=== PATIENT | male | born 1955 | race Caucasian/White ===

== ENCOUNTER 2019-06-29 17:48 | Inpatient (IN) | payer BC ==
[2019-06-29] MEDS ORDERED: ASPIRIN 81 MG PO STA (18:25)
[2019-06-29] MEDS ORDERED: SODIUM CHLORIDE 0.9% 500 ML 500 ML IV STA (18:25)
[2019-06-29 18:37] LABS: Basophils % (A) 0 %; Eosinophils # (A) 0.1 k/uL (0-0.7); Eosinophils % (A) 1 %; HGB 14.2 gm/dL (13.0-17.5); Lymphocytes # (A) 1.4 k/uL (1.0-4.8); Lymphocytes % (A) 22 %; MCH 30.6 pg (25.0-35.0); MCHC 33.8 g/dL (31.0-37.0); MCV 90.6 fL (80.0-100.0); Mean Platelet Volume 8.8; Monocytes # (A) 0.3 k/uL (0-1.0); Monocytes % (A) 5 %; Neutrophils # (A) 4.6 k/uL (1.3-7.7); Neutrophils % (A) 70 %; Platelet Count 234 k/uL (150-450); RBC 4.64 m/uL (4.30-5.90); RDW 14.7 % (11.5-15.5); WBC 6.6 k/uL (3.8-10.6)
[2019-06-29 18:44] LABS: ALT 27 U/L (21-72); AST 15 U/L (17-59); African American GFR (CKD) >90 (>60 ml/min/1.73 sqM); Albumin 4.8 g/dL (3.5-5.0); Alkaline Phosphatase 44 U/L (38-126); Anion Gap 11 mmol/L; Blood Urea Nitrogen 17 mg/dL (9-20); Calcium 9.7 mg/dL (8.4-10.2); Carbon Dioxide 29 mmol/L (22-30); Chloride 99 mmol/L (98-107); Glucose 113 mg/dL (74-99); Potassium 3.8 mmol/L (3.5-5.1); Sodium 139 mmol/L (137-145); Total Bilirubin 0.4 mg/dL (0.2-1.3); Total Protein 7.5 g/dL (6.3-8.2)
--- NOTE | 2019-06-29 18:45 | ED ---
General Adult HPI <Elier Portillo - Last Filed: 06/29/19 19:48> - General Source: patient Mode of arrival: ambulatory Limitations: no limitations <Sasha Kim - Last Filed: 06/29/19 19:56> - General Chief complaint: Chest Pain Stated complaint: CHEST PAIN Time Seen by Provider: 06/29/19 18:01 - History of Present Illness Initial comments: 64-year-old male patient presents to the emergency department today for evaluation of chest pain. Patient states that he isn't having intermittent chest pain since Saturday. States he was seen, evaluated, and admitted at [facility] and was discharged Saturday morning. Patient states he filled a prescription of Nitro yesterday. States that he has taken a nitro tablet since filling the prescription. Patient states that the nitro does seem to resolve the chest pain. Patient states the pain is located on the left side of his chest radiating through to his back beneath his left shoulder blade. Patient states he does become short of breath when the pain comes on. Denies sweats, nausea, vomiting, or dizziness. Denies leg pain or swelling. Patient states that his blood pressure has been quite elevated with these episodes as well. states his blood pressure was 204/[address] Patient denies ever having a cardiac catheterization. He states that his father age 68 from cardiac complications and his brother has a 5 cardiac stents. Patient denies any recent rash, fever, chills, cough, abdominal pain, diarrhea, constipation, back pain, numbness, tingling, dizziness, weakness, hematuria, dysuria, urinary urgency, urinary frequency, headache, visual changes, or any other complaints. (Sasha Kim) - Related Data Home Medications Medication Instructions Recorded Confirmed Aspirin EC [Ecotrin Low Dose] 81 mg PO DAILY 06/29/19 06/29/19 Atorvastatin Calcium [Lipitor] 20 mg PO HS 06/29/19 06/29/19 Cyclobenzaprine [Flexeril] 10 mg PO DAILY PRN 06/29/19 06/29/19 Fenofibrate 160 mg PO HS 06/29/19 06/29/19 Losartan Potassium [Cozaar] 100 mg PO DAILY 06/29/19 06/29/19 Ranitidine HCl [Zantac] 150 mg PO BID PRN 06/29/19 06/29/19 traMADol HCL [Ultram] 50 mg PO Q6HR PRN 06/29/19 06/29/19 Allergies Allergy/AdvReac Type Severity Reaction Status Date / Time No Known Allergies Allergy Verified 06/29/19 17:55 Review of Systems ROS Other: All systems not noted in ROS Statement are negative. <Elier Portillo - Last Filed: 06/29/19 19:48> ROS Other: All systems not noted in ROS Statement are negative. <Sasha Kim - Last Filed: 06/29/19 19:56> ROS Statement: Those systems with pertinent positive or pertinent negative responses have been documented in the HPI. Past Medical History Past Medical History: Chest Pain / Angina, Hypertension Additional Past Medical History / Comment(s): eczema History of Any Multi-Drug Resistant Organisms: None Reported Past Surgical History: Orthopedic Surgery Additional Past Surgical History / Comment(s): E femur, jaw Past Psychological History: No Psychological Hx Reported Smoking Status: Former smoker Past Alcohol Use History: Occasional Past Drug Use History: None Reported <Sasha Kim - Last Filed: 06/29/19 19:56> General Exam Limitations: no limitations General appearance: alert, in no apparent distress, other (This is a well- developed, well-nourished adult male patient in no acute distress. Vital signs upon presentation are temperature 98.3F, pulse 79, respirations 18, blood pre ssure 151/89, pulse ox 99% on room air.) Eye exam: Present: normal appearance, PERRL, EOMI. Absent: scleral icterus, conjunctival injection, periorbital swelling ENT exam: Present: normal exam, normal oropharynx, mucous membranes moist Respiratory exam: Present: normal lung sounds bilaterally. Absent: respiratory distress, wheezes, rales, rhonchi, stridor Cardiovascular Exam: Present: regular rate, normal rhythm, normal heart sounds. Absent: systolic murmur, diastolic murmur, rubs, gallop, clicks Neurological exam: Present: alert, oriented X3, CN II-XII intact Psychiatric exam: Present: normal affect, normal mood Skin exam: Present: warm, dry, intact, normal color. 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 uQevedo. Patient be admitted for cardiology evaluation the presentation is consistent with unstable angina. (Elier Portillo) EKG Findings - EKG Comments: EKG Findings:: EKG obtained at 1803 shows a sinus rhythm with a ventricular rate of 76, VT interval 134, QRS duration 88, QT 378, QTC 425 area no evidence of ST elevation or depression. <Sasha Kim - Last Filed: 06/29/19 19:56> Medical Decision Making - Lab Data Result diagrams: 06/29/19 18:14 06/29/19 18:14 <Elier Portillo - Last Filed: 06/29/19 19:48> - Lab Data Result diagrams: 06/29/19 18:14 06/29/19 18:14 - Radiology Data Radiology results: report reviewed, image reviewed <Sasha Kim - Last Filed: 06/29/19 19:56> - Medical Decision Making 64-year-old male patient presented to the emergency department today for evaluation of intermittent chest pain starting on Saturday. Patient has taken 8 nitro tablets since yesterday afternoon. Patient states the pain does resolve when he takes a nitro. Physical examination is unremarkable. Initial labs are obtained, troponin 0.02. Chest x-ray is unremarkable. Given patient's symptoms, history, and family history of admit to the hospital for serial tropon ins. We will start heparin. Cardiology has been consulted. (Sasha Kim) - Lab Data Lab Results 06/29/19 06/29/19 06/29/19 Range/Units 18:14 18:14 18:14 WBC 6.6 (3.8-10.6) k/uL RBC 4.64 (4.30-5.90) m/uL Hgb 14.2 (13.0-17.5) gm/dL Hct 42.0 (39.0-53.0) % MCV 90.6 (80.0-100.0) fL MCH 30.6 (25.0-35.0) pg MCHC 33.8 (31.0-37.0) g/dL RDW 14.7 (11.5-15.5) % Plt Count 234 (150-450) k/uL Neutrophils % 70 % Lymphocytes % 22 % Monocytes % 5 % Eosinophils % 1 % Basophils % 0 % Neutrophils # 4.6 (1.3-7.7) k/uL Lymphocytes # 1.4 (1.0-4.8) k/uL Monocytes # 0.3 (0-1.0) k/uL Eosinophils # 0.1 (0-0.7) k/uL Basophils # 0.0 (0-0.2) k/uL PT 10.0 (9.0-12.0) sec INR 0.9 (<1.2) APTT 21.8 L (22.0-30.0) sec D-Dimer 0.42 (<0.60) mg/L FEU Sodium 139 (137-145) mmol/L Potassium 3.8 (3.5-5.1) mmol/L Chloride 99 (98-107) mmol/L Carbon Dioxide 29 (22-30) mmol/L Anion Gap 11 mmol/L BUN 17 (9-20) mg/dL Creatinine 0.75 (0.66-1.25) mg/dL Est GFR (CKD-EPI)AfAm >90 (>60 ml/min/1.73 sqM) Est GFR (CKD-EPI)NonAf >90 (>60 ml/min/1.73 sqM) Glucose 113 H (74-99) mg/dL Calcium 9.7 (8.4-10.2) mg/dL Magnesium 2.0 (1.6-2.3) mg/dL Total Bilirubin 0.4 (0.2-1.3) mg/dL AST 15 L (17-59) U/L ALT 27 (21-72) U/L Alkaline Phosphatase 44 (38-126) U/L Troponin I (0.000-0.034) ng/mL Total Protein 7.5 (6.3-8.2) g/dL Albumin 4.8 (3.5-5.0) g/dL 06/29/19 Range/Units 18:14 WBC (3.8-10.6) k/uL RBC (4.30-5.90) m/uL Hgb (13.0-17.5) gm/dL Hct (39.0-53.0) % MCV (80.0-100.0) fL MCH (25.0-35.0) pg MCHC (31.0-37.0) g/dL RDW (11.5-15.5) % Plt Count (150-450) k/uL Neutrophils % % Lymphocytes % % Monocytes % % Eosinophils % % Basophils % % Neutrophils # (1.3-7.7) k/uL Lymphocytes # (1.0-4.8) k/uL Monocytes # (0-1.0) k/uL Eosinophils # (0-0.7) k/uL Basophils # (0-0.2) k/uL PT (9.0-12.0) sec INR (<1.2) APTT (22.0-30.0) sec D-Dimer (<0.60) mg/L FEU Sodium (137-145) mmol/L Potassium (3.5-5.1) mmol/L Chloride (98-107) mmol/L Carbon Dioxide (22-30) mmol/L Anion Gap mmol/L BUN (9-20) mg/dL Creatinine (0.66-1.25) mg/dL Est GFR (CKD-EPI)AfAm (>60 ml/min/1.73 sqM) Est GFR (CKD-EPI)NonAf (>60 ml/min/1.73 sqM) Glucose (74-99) mg/dL Calcium (8.4-10.2) mg/dL Magnesium (1.6-2.3) mg/dL Total Bilirubin (0.2-1.3) mg/dL AST (17-59) U/L ALT (21-72) U/L Alkaline Phosphatase (38-126) U/L Troponin I 0.023 (0.000-0.034) ng/mL Total Protein (6.3-8.2) g/dL Albumin (3.5-5.0) g/dL - Radiology Data Two-view x-ray of the chest is obtained. Report is reviewed in its entirety. Impression by Dr. Ostermann shows normal chest. (Sasha Kim) Disposition <Elier Portillo - Last Filed: 06/29/19 19:48> Decision to Admit Reason: Admit from EC Decision Date: 06/29/19 Decision Time: 19:55 <Sasha Kim - Last Filed: 06/29/19 19:56> Clinical Impression: Chest pain, Unstable angina pectoris Disposition: ADMITTED IP TO THIS [facility] Condition: Serious Referrals: Tamara Ryder MD [Primary Care Provider] - 1-2 days
[2019-06-29 19:00] LABS: D-Dimer 0.42 mg/L FEU (<0.60); INR 0.9 (<1.2)
[2019-06-29 19:01] LABS: Partial Thromboplastin Time 21.8 sec (22.0-30.0)
--- NOTE | 2019-06-29 19:16 | XR ---
EXAMINATION TYPE: XR chest 2V DATE OF EXAM: 06/29/2019 COMPARISON: NONE HISTORY: Pain TECHNIQUE: Frontal and lateral views of the chest are obtained. FINDINGS: Heart and mediastinum are normal. Lungs are clear. Diaphragm is normal. Bony thorax is int act. IMPRESSION: Normal chest
[2019-06-29] MEDS ORDERED: NITROGLYCERIN SL TABS 0.4 MG TAB SUBLINGUAL PRN (19:40)
[2019-06-29] MEDS ORDERED: HEPARIN SODIUM,PORCINE 5,000 UNIT/ML 1 ML VIAL IV ONE (19:40)
[2019-06-29] MEDS ORDERED: HEPARIN SOD,PORK IN 0.45% NACL 25,000 UNIT in 0.45% NACL 1 250ML.BAG IV SCH (19:45)
[2019-06-29] MEDS ORDERED: NITROGLYCERIN OINT 1 INCH/GM PACKET TOPICAL STA (20:19)
[2019-06-29] MEDS ORDERED: NITROGLYCERIN-D5W PMX 50 MG in DEXTROSE/WATER 1 250ML.BAG IV SCH (23:45)
[2019-06-29] MEDS ORDERED: MORPHINE SULFATE 4 MG/ML SYRINGE IVP PRN (23:54)
[2019-06-29] MEDS ORDERED: FAMOTIDINE 20 MG TAB PO PRN (23:56)
[2019-06-30] MEDS ORDERED: NITROGLYCERIN OINT 1 INCH/GM PACKET TOPICAL SCH
[2019-06-30] MEDS ORDERED: MELATONIN 5 MG TABLET PO ONE (02:11)
[2019-06-30 02:41] LABS: Glucose,Whole Blood 95 mg/dL (75-99)
[2019-06-30] MEDS ORDERED: HEPARIN SODIUM,PORCINE 5,000 UNIT/ML 1 ML VIAL IV STA (05:37)
[2019-06-30 06:12] LABS: HGB 12.7 gm/dL (13.0-17.5); MCHC 34.2 g/dL (31.0-37.0); MCV 90.7 fL (80.0-100.0); Mean Platelet Volume 8.5; Platelet Count 184 k/uL (150-450); RBC 4.08 m/uL (4.30-5.90); WBC 5.5 k/uL (3.8-10.6)
[2019-06-30 06:26] LABS: African American GFR (CKD) >90 (>60 ml/min/1.73 sqM); Anion Gap 8 mmol/L; Blood Urea Nitrogen 16 mg/dL (9-20); Carbon Dioxide 28 mmol/L (22-30); Chloride 104 mmol/L (98-107); Cholesterol 156 mg/dL (<200); Glucose 94 mg/dL (74-99); HDL Cholesterol 46 mg/dL (40-60); LDL Cholesterol,Calculated 92 mg/dL (0-99); Potassium 3.7 mmol/L (3.5-5.1); Sodium 140 mmol/L (137-145); Triglycerides 89 mg/dL (<150)
[2019-06-30] MEDS ORDERED: POTASSIUM BICARBONATE/CIT AC 20 MEQ TABLET.EFF NG-TUBE ONE (07:00)
[2019-06-30] MEDS ORDERED: ASPIRIN 325 MG TAB PO STA (07:54)
[2019-06-30] MEDS ORDERED: SODIUM CHLORIDE 0.9% 1,000 ML in EMPTY BAG 1 BAG IV ONE (07:54)
[2019-06-30] MEDS ORDERED: ALPRAZolam 0.25 MG TAB PO PRN (07:54)
[2019-06-30] MEDS ORDERED: NITROGLYCERIN SL TABS 0.4 MG TAB SUBLINGUAL PRN ×2 (07:54→15:04)
[2019-06-30] MEDS ORDERED: ALPRAZolam 0.5 MG TAB PO PRN (07:54)
[2019-06-30] MEDS ORDERED: ATORVASTATIN 80 MG TAB PO STA (07:54)
--- NOTE | 2019-06-30 08:30 | CONS ---
CONSULTATION Mr. Parker is 64-year-old male known history of hypertension, hyperlipidemia, who was admitted to the emergency room with symptoms of chest discomfort. His symptoms started in May on and off. He was admitted to [facility] beginning of May, underwent full cardiac workup including a stress test according to him that was reported to be normal. His discomfort at that time is exertional in pattern. He continued to have recurrent episode of chest discomfort and was seen in the emergency room in [place] on Saturday with chest pain, was given nitroglycerin and during Saturday had multiple episodes of chest pain requiring nitroglycerin. MMODL / IJN: [id number] /
[2019-06-30] MEDS: SODIUM CHLORIDE 0.9% 1,000 ML IV SCH ×2 (08:59→20:46)
[2019-06-30] MEDS ORDERED: ASPIRIN 325 MG TAB PO SCH (09:00)
--- NOTE | 2019-06-30 09:57 | CONS ---
CONSULTATION PULMONARY/CRITICAL CARE CONSULTATION: DATE OF CONSULTATION: 06/30/2017 This is a patient who presented to the emergency room on June 29. He apparently complained of a chest pain. The patient apparently had been having chest pain for a period of a number of days, lasting for about 3 or 4 days or so since the prior Saturday. He was apparently seen and evaluated, admitted at [facility] and was discharged on Saturday morning. He apparently got a prescription for nitroglycerin, which he filled. Since that time, he has taken nitroglycerin tablets on and off. The pain seemed to resolve with nitroglycerin sublingual. The pain is left- sided and radiates to the back beneath the left shoulder blade. He also complains of being short of breath. He denies any nausea, vomiting or dizziness. Denies any leg pain or swelling. Denies any GI issues. No genitourinary issues. Apparently, the patient's blood pressure has been out of control. The patient has never had a cardiac catheterization. Apparently, he may be going for catheterization today. Currently, he is resting comfortably. No chest pain. He is not receiving any supplemental oxygen. His IVs are heparin via weight-based protocol and nitroglycerin at 2.5 mcg/minute. HOME MEDICATIONS: Include aspirin, Lipitor, cyclobenzaprine which is Flexeril, fenofibrate, losartan, ranitidine, and tramadol. MEDICAL HISTORY: Includes hyperlipidemia, hypertension, angina, eczema, and chronic pain. SURGICAL HISTORY: Includes orthopedic procedures including femur procedure and some jaw surgery. SOCIAL HISTORY: Positive for previous tobacco use. Does not smoke currently. Alcohol is apparently used occasionally. No illicit drug use. FAMILY HISTORY: Noncontributory. Apparently his parents were relatively healthy, although he apparently has a brother that has had multiple cardiac procedures and cardiac stents and then subsequent to that, he remembers that apparently his father at age 68 from some sort of cardiac history. REVIEW OF SYSTEMS: CONSTITUTIONAL: Negative. NEUROLOGIC: Negative. HEENT: Negative. CARDIOVASCULAR: Chest pain. PULMONARY: Shortness of breath with the chest pain. GI: Negative. : Negative. RHEUMATOLOGIC: Negative. IMMUNOLOGIC: Negative. ENDOCRINOLOGIC: Negative. DERMATOLOGIC: Negative. PHYSICAL EXAMINATION: Current vital signs are reviewed. Temperature is 98.7, heart rate 58, respiratory rate 12, blood pressure 119/78 mean 91, room air saturation 96%. Appears in no acute distress. HEENT: Examination is grossly unremarkable. No supplemental oxygen noted. Mucous membranes are moist. NECK: Supple. Full range of motion. No adenopathy or thyromegaly. Neck veins are flat. CARDIOVASCULAR: Examination reveals regular rhythm and rate. S1, S2 normal. Heart rate in the mid 50s. No heart murmur. LUNGS: Reveal clear breath sounds equal. No wheezes, rhonchi, or crackles. ABDOMEN: Soft. Bowel sounds are heard. No masses or tenderness. EXTREMITIES: Intact. No cyanosis, clubbing, or edema. SKIN: Without rash. NEUROLOGIC: Examination is brief but nonfocal. LABS: Reviewed. White count 5.5, hemoglobin 12.7, hematocrit 37, platelet count 184,000. Sodium 140, potassium 3.7, chloride 104, CO2 is 28, anion gap is 8. BUN and creatinine were 16 and 0.67. Troponin was 0.023 and then 0.119. His cholesterol was 156. Chest x-ray was normal. EKG showed some nonspecific ST-T wave changes but nothing acute. ASSESSMENT: 1. Chest pain, rule out non ST-segment elevation myocardial infarction. 2. Family history of cardiac disease including a brother with multiple stent placements. 3. History of hypertension. 4. History of hyperlipidemia. 5. Chronic pain syndrome. 6. Previous history of tobacco use. PLAN: The patient may go for cardiac catheterization today. Currently in the ICU he is very stable. No additional recommendations are made. Pending the cath result, he can move out of the ICU later today. Additional recommendations and suggestions are forthcoming. Prognosis is guarded. MMODL / IJN: [id number] /
--- NOTE | 2019-06-30 10:11 | CONS ---
CONSULTATION Mr. Parker is a 64-year-old male followed by Dr. Ryder who started to complain of chest discomfort early in May. He was admitted to [facility] and according to him underwent a full workup including a stress test that showed no evidence of inducible ischemia, but had recurrent chest discomfort on and off. At times, exertional in pattern and was seen in the emergency room in [place] on Saturday for similar symptoms. Was given nitroglycerin sublingually, had to use a lot of them on Saturday and came back to the emergency room yesterday in [place] and admitted. Some of the discomfort is exertional in pattern. He has some dyspnea with it and occasional dizziness. No palpitation or syncope. He has no PND, orthopnea, or peripheral edema. He has no prior documented history of cardiac disease. His coronary risk factors are remarkable for history of hypertension, hyperlipidemia. MEDICATIONS: His medications include Lipitor 20 mg daily, fenofibrate 160 mg daily, losartan 100 mg daily, ranitidine, cyclobenzaprine, tramadol, and aspirin once a day. REVIEW OF SYSTEMS: RESPIRATORY SYSTEM: He has no recent wheezing, cough. No history of documented obstructive lung disease. GI SYSTEM: No recent GI bleeding. No peptic ulcer disease. SYSTEM: No dysuria or hematuria. NERVOUS SYSTEM: No stroke or seizure. PHYSICAL EXAMINATION: This is a 64-year-old male, alert, oriented, in no apparent distress. Blood pressure 119/70 with the heart rate in the 60s. HEAD: Normocephalic. EYES: Sclerae anicteric. NECK: Good carotid upstroke. No bruit. No jugular venous distention. LUNGS: Clear to auscultation. HEART: Regular rate and rhythm S1, S2. No S3. No S4. No rub. ABDOMEN: Soft, nontender. Positive bowel sounds. No organomegaly. EXTREMITIES: No edema. Intact distal pulses. LAB DATA: Lab data revealed troponin 0.023 and 0.119, BUN and creatinine 16 and 0.67, potassium 3.7, hemoglobin of 12.7. EKG: Initial EKG reveals sinus mechanism, normal axis and intervals. Normal echocardiogram. Second EKG showed ST-segment depression in the lateral precordial leads as well as Lead I and aVL. IMPRESSION: 1. Non ST-segment elevation myocardial infarction probably in the left circumflex territory. 2. Hypertension. 3. Hyperlipidemia. RECOMMENDATION: I will try to obtain the results of his echocardiogram that was done in [place], but I would recommend to proceed with coronary angiography to assess his status and guide his treatment. The rationale behind the procedure as well as the risks and complication were discussed with the patient who is in full understanding and agreement. CHERELLE / MIKEL: [id number] / MTDD
[2019-06-30] MEDS: ACETAMINOPHEN TAB 325 MG TAB PO PRN ×2 (11:53→21:48)
[2019-06-30 12:13] LABS: Glucose,Whole Blood 95 mg/dL (75-99)
[2019-06-30] MEDS ORDERED: fentaNYL (PF) 50 MCG/ML 2 ML AMP IV ONE (13:35)
[2019-06-30] MEDS ORDERED: MIDAZOLAM (PF) 2 MG/2 ML VIAL IV ONE (13:35)
[2019-06-30] MEDS ORDERED: NITROGLYCERIN SL TABS 0.4 MG TAB SUBLINGUAL ONE (13:36)
[2019-06-30] MEDS ORDERED: LIDOCAINE 1% INJ 10MG/ML (20 ML MDV) SQ ONE (13:37)
[2019-06-30] MEDS ORDERED: VERAPAMIL SYRINGE (5 MG/10 ML) INTRAARTER ONE (13:38)
[2019-06-30] MEDS ORDERED: IV FLUID CONTINUATION 600 ML IV ONE (13:41)
[2019-06-30] MEDS ORDERED: BIVALIRUDIN BOLUS 250 MG/50 ML IV ONE (13:52)
[2019-06-30] MEDS ORDERED: TICAGRELOR 90 MG TAB PO ONE (13:52)
[2019-06-30] MEDS ORDERED: BIVALIRUDIN 250 MG in SODIUM CHLORIDE 0.9% 36.5 ML IV ONE (13:53)
[2019-06-30] MEDS: NITROGLYCERIN 1000MCG/10ML SYRINGE INTRACORON ONE ×2 (13:55→14:15)
[2019-06-30] MEDS ORDERED: IOPAMIDOL-370 100ML BTL INJ ONE ×3 (13:56→14:39)
[2019-06-30] MEDS ORDERED: RX INFO: IV CONTRAST WAS GIVEN 1 EACH MISC MISCELLANE PRN (15:04)
[2019-06-30] MEDS ORDERED: ATROPINE SULFATE 0.1 MG/ML 10ML SYRINGE IV PRN (15:04)
[2019-06-30] MEDS ORDERED: ZOLPIDEM 5 MG TAB PO PRN (15:04)
[2019-06-30] MEDS ORDERED: MAG HYDROX/AL HYDROX/SIMETH 30 ML CUP PO PRN (15:04)
[2019-06-30] MEDS ORDERED: SODIUM CHLORIDE 0.9% 1,000 ML IV SCH (15:15)
[2019-06-30] MEDS: LOSARTAN 50 MG TAB PO SCH (15:27)
--- NOTE | 2019-06-30 18:42 | CC ---
CARDIAC CATHETERIZATION REPORT Mr. Parker is a 64-year-old male with a history of hyperlipidemia, hypertension, who has been complaining of episode of chest discomfort. He was evaluated in [facility] and has underwent a myocardial perfusion imaging that was reported showing no evidence of inducible ischemia, but he had persistent symptoms and was seen again in the emergency room, but because of the persistent symptoms, Dr. Ryder sent him to [facility]. On presentation, he had mild ST-segment depression and minimal troponin elevation. In view of that, recommendation made regarding cardiac catheterization. The procedures, risks and complications were discussed with the patient who is in full understanding and agreement. DESCRIPTION OF PROCEDURE: Patient was brought to laboratory specialist in a fasting state after receiving fentanyl and Benadryl and achieving moderate conscious sedated state. Using Xylocaine anesthesia and Seldinger technique, a 6-Nauruan sheath was introduced in the right radial artery. Selective right and left coronary angiography was performed using 5-Nauruan 3 and half bend right and left Jade catheter. Multiple views of the coronary arteries including hemiaxial views were obtained. Following that, angioplasty and stenting was performed. Following that, left ventricular end-diastolic pressure was calculated using a 5-Nauruan tight pigtail catheter. Following that, catheter and sheath were removed. Hemostasis was obtained with deployment of a TR band. There was no immediate complications. Patient was returned to his room in stable condition. Of note, the patient received intraarterial verapamil. FINDINGS: FLUOROSCOPY: There was calcification involving the left main, LAD and left circumflex, proximal as well as the mid and right coronary artery. SELECTIVE CORONARY ANGIOGRAPHY: Left main: This is a large-sized vessel, bifurcating into the left circumflex, left anterior descending artery, left main coronary artery has no evidence of high-grade stenosis. Left anterior descending artery: This is a calcified vessel, large in caliber, reaching toward the apex with a wraparound apex segment giving rise to a large diagonal branch. Left anterior descending artery has diffuse intimal disease throughout its course of 20% to 30%, had no focal plaque. Left circumflex: This is a nondominant vessel, large in caliber giving rise to a large obtuse marginal branch. The proximal segment of the obtuse marginal branch has a 99% stenosis. Distal to that, there is another plaque of 30% to 40% The rest of the vessel has no high-grade stenosis. Right coronary artery: This is a dominant vessel, large in caliber, bifurcating distally into PDA and posterolateral segment and branches. The right coronary artery has diffuse disease throughout its course from the proximal segment to prior to the bifurcation with area of stenosis of 99% stenosis in the mid and distal. The PLV and PDA have no evidence of high-grade stenosis. LEFT VENTRICULOGRAM: The left ventriculogram was not performed. HEMODYNAMICS: There was no gradient across the aortic valve. The left ventricular end-diastolic pressure was 8 mmHg. CONCLUSION: 1. Critical stenosis involving the first obtuse marginal branch. 2. Critical stenosis and diffuse pattern throughout the course of the RCA until the bifurcation. 3. Mild to moderate disease in the LAD. RECOMMENDATION: In view of finding anatomy, I recommend proceeding with angioplasty and stenting of the left circumflex and the right coronary artery. The procedure as well as risks and complications were discussed with the patient who is in full understanding and agreement. MMODL / IJN: [id number] /
--- NOTE | 2019-06-30 18:45 | PTCA ---
PERCUTANEOUSTRANS CORORONARY ANGIOGRAPHY Mr. Parker is a 64-year-old male who presented with a non ST-segment elevation myocardial infarction, underwent cardiac catheterization, was found to have critical stenosis involving the second obtuse marginal branch and the right coronary artery. In view of that, recommendation made regarding angioplasty and stenting. The procedure as well as risks and complications were discussed with the patient who is in full understanding and agreement. DESCRIPTION OF PROCEDURE: A 6-Welsh FL 3.5 guiding catheter was introduced into the system. After cannulating the left main, a 0.014 balanced medium weight J-wire was advanced and positioned distal obtuse marginal branch. Following that, a 2.5 x 12 mm Trek balloon was advanced and one inflation at 10 atmospheres was done. Following that, the balloon was removed and a 2.75 x 15 mm Xience Deisy stent was deployed and was dilated at 16 atmospheres. After the last inflation, after appropriate wait, the balloon and the guidewire were withdrawn back in the guiding catheter. Images were obtained repeated. Those images reveal stable successful stenting. At that point, the guiding catheter, the balloon and the guidewire were removed and a 6-Welsh FR4 guiding catheter in the system. After cannulating the right coronary ostium, a 0.014 balanced medium weight J-wire was advanced and positioned distal right coronary artery. Subsequently a 2.25 x 12 mm Trek balloon was advanced and multiple inflations throughout the course of the vessel were done at a maximum of 10 atmospheres. Following that, the balloon was removed and a 2.5 x 38 mm Xience Deisy stent was deployed distally. It was dilated at 16 atmospheres. After removing the balloon, another 2.5 x 38 mm Xience Deisy stent was deployed proximal to the first one and it was dilated at 16 atmospheres. Following that, a 2.75 x 12 mm Xience Deisy stent was deployed proximally and was dilated at for 16 atmospheres. Following that, a 2.75 x 15 mm NC Trek balloon was advanced and multiple inflations throughout the course of the vessel were performed. Following that catheter was removed. Left ventricular end-diastolic pressure was calculated. Following that catheter and sheaths were removed. The patient was returned to his room in stable condition. There was no immediate complication. Of note, the patient received Angiomax per protocol as well as oral loading dose of Brilinta. He had chest discomfort and mild EKG changes with the inflation that resolved at the end of the procedure. RESULTS: 1. Successful stenting of the second obtuse marginal branch with reduction of stenosis from 99% to 0%. 2. Successful stenting of a long segment of the right coronary artery with reduction of stenosis from 95% to 0%. RECOMMENDATIONS: Patient will be continued on aspirin, Brilinta, beta blockers and statin. The importance of dual antiplatelet treatment were discussed with the patient and his family and are in full understanding and agreement. Duration of procedure is 69 minutes. MMODL / IJN: [id number] /
[2019-06-30] MEDS: TICAGRELOR 90 MG TAB PO SCH (20:45)
[2019-06-30] MEDS ORDERED: FENOFIBRATE 160 MG TAB PO SCH (21:00)
[2019-06-30] MEDS ORDERED: ATORVASTATIN 80 MG TAB PO SCH (21:00)
[2019-06-30] MEDS ORDERED: ATORVASTATIN 20 MG TAB PO SCH (21:00)
--- NOTE | 2019-06-30 23:07 | P.HPIM ---
History of Present Illness H&P Date: 06/30/19 Chief Complaint: Chest pain Patient is a 64-year-old male with a known history of hypertension, hyperlipidemia and history of chest pains, previous history of smoking came to ER with complaints of chest pain. Patient says that he has been having chest pain since Saturday and was admitted to [facility] and were discharged Saturday morning. Patient was still having chest pain mainly left retrosternal and radiating to the left shoulder and to the left jaw and to the back. Chest pain is associated shortness of breath. Patient started after he picked up to tomatos from the garden and was walking. Patient says that he has been having chest pains the past 1 year and exertional shortness of breath as well. Patient had stress test done in May 2019 which was negative. Patient's states that his blood pressure went up to 20 02/02 54 mm hg on the patient to hospital. No prior history of headache catheterization. Denied any complaints of cough or sputum production. No fever no chills. No nausea vomiting or abdominal pain. No dizziness or lightheadedness. No other pain no PND. EKG showed unusual year and ectopic atrial rhythm. Chest x-ray showed no acute cardio for process Troponin 0.0-3, 0.119, 0.089 Patient was seen by cardiology and was taken to cardiac catheterization. Review of Systems Constitutional: Patient denies any fever or chills . No generalized weakness or weight loss. Abdomen: Patient denied nausea vomiting and diarrhea and abdominal pain. Cardiovascular: Chest pain radiating to the shoulder and short of breath no palpitations. Respiratory: patient denied any cough is from production. No shortness of breath Neurologic: Patient denied any numbness or tingling headache. Musculoskeletal: Patient denies any complaints of joint swelling or deformity. Skin: Negative Psychiatric: Negative Endocrine: No heat or cold intolerance. No recent weight gain. Genitourinary: No dysuria or hematuria. All other 14 point ROS negative except the above Past Medical History Past Medical History: Chest Pain / Angina, Hypertension Additional Past Medical History / Comment(s): Eczema History of Any Multi-Drug Resistant Organisms: None Reported Past Surgical History: Orthopedic Surgery Additional Past Surgical History / Comment(s): Right femur fx, jaw fx Past Psychological History: No Psychological Hx Reported Smoking Status: Former smoker Past Alcohol Use History: Occasional Past Drug Use History: None Reported - Past Family History Father Additional Family Medical History / Comment(s): Father at 68 of myocardial infarction. Brother(s) Additional Family Medical History / Comment(s): Brother has 5 cardiac stents. Medications and Allergies Home Medications Medication Instructions Recorded Confirmed Type Aspirin EC [Ecotrin Low Dose] 81 mg PO DAILY 06/29/19 06/29/19 History Atorvastatin Calcium [Lipitor] 20 mg PO HS 06/29/19 06/29/19 History Cyclobenzaprine [Flexeril] 10 mg PO DAILY PRN 06/29/19 06/29/19 History Fenofibrate 160 mg PO HS 06/29/19 06/29/19 History Losartan Potassium [Cozaar] 100 mg PO DAILY 06/29/19 06/29/19 History Ranitidine HCl [Zantac] 150 mg PO BID PRN 06/29/19 06/29/19 History traMADol HCL [Ultram] 50 mg PO Q6HR PRN 06/29/19 06/29/19 History Allergies Allergy/AdvReac Type Severity Reaction Status Date / Time No Known Allergies Allergy Verified 06/29/19 17:55 Physical Exam Vitals: Vital Signs Temp Pulse Pulse Resp BP Pulse Ox 06/30/19 13:00 58 L 11 L 128/76 94 L 06/30/19 12:30 57 L 13 126/81 96 06/30/19 12:00 98 F 56 L 14 128/92 96 06/30/19 11:30 63 18 126/88 96 06/30/19 11:00 60 11 L 122/76 96 06/30/19 10:30 61 16 121/69 97 06/30/19 10:00 62 16 133/84 95 06/30/19 09:30 55 L 14 130/97 94 L 06/30/19 09:00 66 17 150/92 95 06/30/19 08:30 69 15 164/96 06/30/19 08:00 98 F 71 15 115/76 96 06/30/19 07:30 56 L 14 124/78 94 L 06/30/19 07:00 58 L 12 119/78 96 06/30/19 06:30 57 L 14 126/80 96 06/30/19 06:00 60 16 109/69 96 06/30/19 05:30 56 L 14 121/70 95 08/27/19 05:00 55 L 14 129/75 95 06/30/19 04:30 55 L 14 128/84 96 06/30/19 04:00 60 12 110/70 96 06/30/19 03:35 98.7 F 55 L 14 06/30/19 03:30 53 L 12 121/76 96 06/30/19 03:00 98.7 F 55 L 12 119/99 96 06/30/19 01:55 64 14 105/69 96 06/30/19 01:50 56 L 14 113/71 97 06/30/19 01:45 55 L 15 111/77 96 06/30/19 01:40 57 L 15 103/81 97 06/30/19 01:35 57 L 14 105/69 96 06/30/19 01:30 62 14 105/71 95 06/30/19 01:25 59 L 15 108/72 96 06/30/19 01:20 55 L 12 103/69 96 06/30/19 01:15 55 L 13 102/73 96 06/30/19 01:10 54 L 14 105/77 96 06/30/19 01:05 60 16 100/74 96 06/30/19 00:55 56 L 98/68 98 06/30/19 00:52 56 L 107/70 06/30/19 00:49 57 L 101/69 06/30/19 00:46 57 L 106/64 06/30/19 00:43 60 106/64 06/30/19 00:40 57 L 106/71 06/29/19 23:56 63 16 117/92 97 06/29/19 23:41 63 16 204/114 98 06/29/19 22:24 60 15 06/29/19 22:19 97.6 F 60 14 115/76 98 06/29/19 21:30 61 14 112/69 98 06/29/19 21:00 57 L 15 127/79 96 06/29/19 20:30 61 15 123/80 97 06/29/19 20:24 61 14 123/80 98 06/29/19 20:00 60 16 156/96 97 06/29/19 18:30 71 16 139/98 97 06/29/19 18:06 75 15 06/29/19 18:05 75 06/29/19 17:55 98.3 F 79 18 151/89 99 Intake and Output 06/29/19 06/30/19 06/30/19 22:59 06:59 14:59 Intake Total 95.031 548.134 Output Total 45 825 Balance 50.031 -276.866 Intake: IV 510 Sodium Chloride 0.9% 1, 510 000 ml @ 100 mls/hr IV . Q10H TUTU Rx#:[id number] Intake, IV Titration 95.031 38.134 Amount Heparin Sod,Pork in 0.45% 94.881 32.059 NaCl 25,000 unit In 0.45 % NaCl 1 250ml.bag @ 11. 14 UNITS/KG/HR 10.005 mls /hr IV .Q24H TUTU Rx#: [id number] Nitroglycerin-D5w Pmx 50 0.15 6.075 mg In Dextrose/Water 1 250ml.bag @ 5 MCG/MIN 1.5 mls/hr IV .Q24H TUTU Rx#: [id number] Output: Urine 45 825 Other: Voiding Method Urinal # Voids 0 1 Weight 89.811 kg PHYSICAL EXAMINATION: Patient is lying in the bed comfortably, no acute distress, awake alert and oriented.. HEENT: Normocephalic. Neck is supple. Pupils reactive. Nostrils clear. Oral cavity is moist. Ears reveal no drainage. Neck reveals no JVD, carotid bruits, or thyromegaly. CHEST EXAMINATION: Trachea is central. Symmetrical expansion. Lung zapata clear to auscultation and percussion. CARDIAC: Normal S1, S2 with no gallops. No murmurs ABDOMEN: Soft. Bowel sounds normal. No organomegaly. No abdominal bruits. Extremities: reveal no edema. No clubbing or cyanosis Neurologically awake, alert, oriented x3 with well-coordinated movements. No focal deficits noted Skin: No rash or skin lesions. Psychiatric: Coperative. Nonsuicidal Musculoskeletal: No joint swelling or deformity. Normal range of motion. Results CBC & Chem 7: 06/30/19 05:53 06/30/19 05:53 Labs: Abnormal Lab Results - Last 24 Hours (Table) 06/29/19 06/29/19 06/30/19 Range/Units 18:14 18:14 03:43 RBC (4.30-5.90) m/uL Hgb (13.0-17.5) gm/dL Hct (39.0-53.0) % APTT 21.8 L 41.6 H (22.0-30.0) sec Glucose 113 H (74-99) mg/dL AST 15 L (17-59) U/L Troponin I (0.000-0.034) ng/mL 06/30/19 06/30/19 06/30/19 Range/Units 05:53 05:53 12:13 RBC 4.08 L (4.30-5.90) m/uL Hgb 12.7 L (13.0-17.5) gm/dL Hct 37.0 L (39.0-53.0) % APTT (22.0-30.0) sec Glucose (74-99) mg/dL AST (17-59) U/L Troponin I 0.119 H* 0.089 H* (0.000-0.034) ng/mL Thrombosis Risk Factor Assmnt - DVT/VTE Prophylaxis DVT/VTE Prophylaxis: Pharmacologic Prophylaxis ordered - Choose All That Apply Any of the Below Risk Factors Present?: Yes Each Factor Represents 1 point: Medical pt on bed rest, Minor surgery planned Other Risk Factors: Yes Each Risk Factor Represents 2 Points: Age 61-74 years, Patient confined to bed Thrombosis Risk Factor Assessment Total Risk Factor Score: 6 Thrombosis Risk Factor Assessment Level: High Risk Assessment and Plan Assessment: Acute non-ST elevated [place] is post cardiac catheterization and stent placement 4 Hypertension Chest pain or exertional dyspnea Recent negative stress test as per patient Previous history of smoking DVT prophylaxis Plan: Patient be continued on telemetry monitoring. Continue with aspirin, prasugrel, lisinopril and statins. Currently beta attila was not started due to bradycardia. Cardiology is on board. Continue to follow closely and further recommendations based on the clinical course. Discussed with the patient and family at bedside. Time with Patient: Greater than 30
[2019-07-01 05:56] LABS: African American GFR (CKD) >90 (>60 ml/min/1.73 sqM); Anion Gap 7 mmol/L; Blood Urea Nitrogen 13 mg/dL (9-20); Calcium 9.2 mg/dL (8.4-10.2); Carbon Dioxide 25 mmol/L (22-30); Chloride 108 mmol/L (98-107); Glucose 95 mg/dL (74-99); Sodium 140 mmol/L (137-145)
[2019-07-01 06:14] LABS: HCT 38.9 % (39.0-53.0); HGB 13.3 gm/dL (13.0-17.5); MCH 31.7 pg (25.0-35.0); MCHC 34.3 g/dL (31.0-37.0); MCV 92.6 fL (80.0-100.0); Mean Platelet Volume 8.3; Platelet Count 195 k/uL (150-450); RDW 13.3 % (11.5-15.5); WBC 5.8 k/uL (3.8-10.6)
--- NOTE | 2019-07-01 08:25 | PN ---
PROGRESS NOTE Mr. Parker is a 64-year-old male who presented with symptoms of chest discomfort and evidence of non ST-segment elevation myocardial infarction, underwent cardiac catheterization yesterday was found to have critical stenosis involving the second obtuse marginal branch as well as a long segment of the right coronary artery, underwent stenting of both vessels. He is doing well this morning. His breathing is stable. He is denying any chest pain. No dizziness. No palpitation. He denies any nausea. He continued to be on aspirin once a day, Brilinta 90 mg twice a day, Lipitor 80 mg daily, fenofibrate 160 mg daily, and losartan 100 mg daily. PHYSICAL EXAMINATION: Blood pressure 114/90 with the heart rate in the 60s. LUNGS: Clear. HEART: Regular rate and rhythm. S1, S2. No S3. No rub. ABDOMEN: Soft, nontender. EXTREMITIES: No edema. Right radial pulse intact. LAB DATA: Lab data revealed BUN and creatinine 13 and 0.62. Hemoglobin 13.3. His peak troponin is 0.152. EKG shows no acute changes this morning. IMPRESSION: 1. Status post non ST-segment elevation myocardial infarction with stenting of the second obtuse marginal branch and the right coronary artery. 2. Hyperlipidemia. 3. Hypertension. RECOMMENDATION: From the cardiac standpoint, we will increase his activity. If he remains stable, I would expect he should be able to be discharged home today and followed as an outpatient. CHERELLE / MIKEL: [id number] /
[2019-07-01] MEDS ORDERED: ASPIRIN 81 MG PO SCH ×2 (09:00)
[2019-07-01] MEDS: LOSARTAN 50 MG TAB PO SCH (09:26)
[2019-07-01] MEDS: TICAGRELOR 90 MG TAB PO SCH (09:28)
--- NOTE | 2019-07-01 09:44 | P.PN ---
Subjective Progress Note Date: 07/01/19 Principal diagnosis: Non-ST segment elevated myocardial infarction, with stenting of the second obtuse marginal branch and the right coronary artery On only patient seen in follow-up in the intensive care unit, yesterday patient underwent heart catheterization and there were 3 stents placed to the right coronary artery, and 1 stent to the up to use marginal branch of the circumflex coronary artery. Patient is doing well, today she is awake and alert, he is on room air, no running IVs, he is an overflow for selective care. No complaints of chest pain, his breathing is stable, no dizziness, no palpitations, no nausea, she is on a combination of aspirin in [place] twice daily, Lipitor, fenofibrate, and losartan. Vital signs are stable, lung sounds are clear, sinus rhythm on the monitor. No specific complaints overnight Objective - Vital Signs Vital signs: Vital Signs Temp 97.9 F 07/01/19 04:00 Pulse 65 07/01/19 07:00 Resp 15 07/01/19 07:00 BP 114/94 07/01/19 07:00 Pulse Ox 97 07/01/19 07:00 Intake & Output 06/30/19 07/01/19 07/01/19 18:59 06:59 18:59 Intake Total 1498.134 600 Output Total 1525 250 150 Balance -26.866 350 -150 Weight 92.2 kg Intake: IV 1210 600 Sodium Chloride 0.9% 1, 960 600 000 ml @ 100 mls/hr IV . Q10H TUTU Rx#:[id number] Intake, IV Titration 38.134 Amount Heparin Sod,Pork in 0.45% 32.059 NaCl 25,000 unit In 0.45 % NaCl 1 250ml.bag @ 11. 14 UNITS/KG/HR 10.005 mls /hr IV .Q24H [facility]U Rx#: [id number] Nitroglycerin-D5w Pmx 50 6.075 mg In Dextrose/Water 1 250ml.bag @ 5 MCG/MIN 1.5 mls/hr IV .Q24H [facility]U Rx#: [id number] Oral 250 Output: Urine 1525 250 150 Other: Voiding Method Urinal Urinal # Voids 1 0 1 - Exam GENERAL EXAM: Alert, pleasant, 64-year-old tall white male room air pulse ox is 97%, comfortable in no apparent distress. HEAD: Normocephalic/atraumatic. EYES: Normal reaction of pupils, equal size. Conjunctiva pink, sclera white. NOSE: Clear with pink turbinates. THROAT: No erythema or exudates. NECK: No masses, no JVD, no thyroid enlargement, no adenopathy. CHEST: No chest wall deformity. Symmetrical expansion. LUNGS: Equal air entry with no crackles, wheeze, rhonchi or dullness. CVS: Regular rate and rhythm, normal S1 and S2, no gallops, no murmurs, no rubs ABDOMEN: Soft, nontender. No hepatosplenomegaly, normal bowel sounds, no guarding or rigidity. EXTREMITIES: No clubbing, no edema, no cyanosis, 2+ pulses and upper and lower extremities. MUSCULOSKELETAL: Muscle strength and tone normal. SPINE: No scoliosis or deformity SKIN: No rashes CENTRAL NERVOUS SYSTEM: Alert and oriented -3. No focal deficits, tone is normal in all 4 extremities. PSYCHIATRIC: Alert and oriented -3. Appropriate affect. Intact judgment and insight. - Labs CBC & Chem 7: 07/01/19 05:11 07/01/19 05:11 Labs: Abnormal Lab Results - Last 24 Hours (Table) 06/30/19 06/30/19 07/01/19 Range/Units 12:13 17:10 05:11 RBC (4.30-5.90) m/uL Hct (39.0-53.0) % Chloride 108 H (98-107) mmol/L Creatinine 0.62 L (0.66-1.25) mg/dL Troponin I 0.089 H* 0.152 H* (0.000-0.034) ng/mL 07/01/19 Range/Units 05:11 RBC 4.20 L (4.30-5.90) m/uL Hct 38.9 L (39.0-53.0) % Chloride (98-107) mmol/L Creatinine (0.66-1.25) mg/dL Troponin I (0.000-0.034) ng/mL Assessment and Plan Plan: Assessment: #1. Chest pain, non-ST segment elevated myocardial infarction #2. Coronary artery disease, status post stenting of the right coronary artery, and up to his marginal branch of the circumflex artery, patient received 3 stents to the RCA one stent to the OM, this is postop day 1 #3. History of hypertension #4. History of hyperlipidemia, #5. Chronic pain syndrome #6. Previous history of tobacco use Plan: Patient is doing well, breathing is stable, no complaints of chest pain, no acute events overnight, he is awaiting a bed on selective care. Cardio ALLERGIES following, and maximizing medical treatment I performed a history & physical examination of the patient and discussed their management with my nurse practitioner, Brittany Byrnes. I reviewed the nurse practitioner's note and agree with the documented findings and plan of care. Lung sounds are positive for clear breath sounds. The findings and the impression was discussed with the patient. I attest to the documentation by the nurse practitioner. Time with Patient: Less than 30
[2019-07-01 09:55] VITALS: BMI 28.3
[2019-07-01 10:52] VITALS: BP 107/93; PULSE 70; RESP 13; TEMP 98
== END 2019-07-01 13:44 | disposition home or self-care (01) | DRG 246 ==
LOC: EC 17:48 → SUPCPDRO 17:48 → 1SOBS 19:41 → OBSVTOIN 23:57 → 2SICU 06-30 00:21
PROVIDERS: ADMIT Hospitalist; ATTEND Hospitalist
PROC: 027137Z Dilation of Coronary Artery, Two Arteries with Four or More Drug-eluting Intraluminal Devices, Percutaneous Approach (ICD-10-PCS; principal; 2019-06-30 13:10)
PROC: B2161ZZ Fluoroscopy of Right and Left Heart using Low Osmolar Contrast (ICD-10-PCS; principal; 2019-06-30 13:10)
DX: I21.4 Non-ST elevation (NSTEMI) myocardial infarction (principal); E78.5 Hyperlipidemia, unspecified; I10 Essential (primary) hypertension; L30.9 Dermatitis, unspecified; I25.10 Atherosclerotic heart disease of native coronary artery without angina pectoris; G89.4 Chronic pain syndrome; Z87.891 Personal history of nicotine dependence; I25.110 Atherosclerotic heart disease of native coronary artery with unstable angina pectoris; Z82.49 Family history of ischemic heart disease and other diseases of the circulatory system; Z95.5 Presence of coronary angioplasty implant and graft; Z79.02 Long term (current) use of antithrombotics/antiplatelets; Z79.82 Long term (current) use of aspirin; Z79.899 Other long term (current) drug therapy
CPT/HCPCS: 36415; 71046; 80048; 80053; 80061; 83735; 84484; 85025; 85027; 85347; 85379; 85610; 85730; 93005; 93458; 96361; 96365; 96366; 96368; 96376; 99285; C1874

== ENCOUNTER 2021-02-27 08:31 | Day surgery (SDC) | payer BC, MEDICARE ==
[2021-02-13 14:43] VITALS: BMI 28.5
--- NOTE | 2021-02-19 12:13 | HP ---
HISTORY AND PHYSICAL REASON FOR ADMISSION: Surgery scheduled for 02/20/2021. Keegan Parker is a 65-year-old gentleman seen with symptomatic right knee osteoarthritis. We discussed options for treatment. He elected to proceed with right total knee arthroplasty. Consent was obtained. Medical clearance was provided by Dr. Ryder. Cardiac clearance was provided by Dr. Sharp. PAST MEDICAL HISTORY: Hypertension, hyperlipidemia, cardiovascular disease. PAST SURGICAL HISTORY: Cardiac catheterization with stent insertion. DAILY MEDICATIONS: Aspirin, atorvastatin, losartan, multivitamins, Zetia. ALLERGIES: NONE. SOCIAL HISTORY: Denies current tobacco use. PHYSICAL EVALUATION OF THE RIGHT KNEE: Range of motion is -2/3-120. There is a mild effusion. Tenderness along the medial joint line. Crepitus along the medial patellofemoral compartments with range of motion. Pain with patellofemoral compression. Ligaments are stable. Hip rotation is without pain. His distal neurovascular exam is intact. RADIOGRAPHS: Right knee radiographs reveal severe osteoarthritic changes. IMPRESSION: 1. Right knee osteoarthritis. 2. Hypertension. 3. Hyperlipidemia. 4. Cardiovascular disease. PLAN: Right total knee arthroplasty. Surgery 02/20/2021. MMODL / IJN: [id number] /
--- NOTE | 2021-02-26 11:57 | HP ---
HISTORY AND PHYSICAL REASON FOR ADMISSION: Surgery scheduled for 02/27/2021. Keegan Parker is a 65-year-old gentleman seen with progressive right knee pain. We discussed options for treatment. He elected to proceed with total knee arthroplasty. Consent regarding procedure was obtained. Preoperative clearance was brought by Dr. Sharp and Dr. Ryder. PAST MEDICAL HISTORY: Hypertension, hyperlipidemia, [id number] diabetes. PAST SURGICAL HISTORY: Cardiac catheterization with stent placement. DAILY MEDICATIONS: Aspirin, atorvastatin, fenofibrate, losartan, Zetia, tramadol, vitamins. ALLERGIES: None. SOCIAL HISTORY: Denies current tobacco use. PHYSICAL EVALUATION OF THE RIGHT KNEE: Range of motion is -2/3-120. He has mild effusion. Tenderness along the medial joint line. There is crepitus along the medial patellofemoral compartments with range of motion. Pain with patellofemoral compression. Ligaments are stable. Hip rotation is without pain. His distal neurovascular exam is intact. RADIOGRAPHS: Radiographs of the right knee revealed severe medial compartment osteoarthritis, moderate patellofemoral compartment osteoarthritis. IMPRESSION: 1. Right knee osteoarthritis. 2. Hypertension. 3. Hyperlipidemia. 4. [id number]-[id number] diabetes. 5. Cardiovascular disease. PLAN: Right total knee arthroplasty. Surgery 02/27/2021. MMODL / IJN: [id number] /
[~2021-02-27 08:31] MED LIST: ACETAMINOPHEN TAB 500 MG TAB PO PRN; HYDROmorphone 0.5 MG/0.5 ML SYRINGE IVP PRN; LACTATED RINGERS 1,000 ML IV SCH; LIDOCAINE 1% (10MG/ML) FOR IV START INTRADERMA PRN; MELOXICAM 7.5 MG TAB PO PRN; ROPIVACAINE/EPI/CLONIDINE/KET 50 ML SYRINGE MISCELLANE PRN; TRANEXAMIC ACID 1,000 MG in SODIUM CHLORIDE 0.9% 100 ML IVPB PRN
[2021-02-27] MEDS ORDERED: ONDANSETRON 4 MG/2 ML VIAL IVP ONE (08:51)
[2021-02-27] MEDS ORDERED: LACTATED RINGERS 1,000 ML IV SCH (08:51)
[2021-02-27] MEDS ORDERED: DEXAMETHASONE SOD PHOSPHATE 4 MG/ML 1 ML VIAL IVP ONE (09:29)
[2021-02-27] MEDS ORDERED: MIDAZOLAM 2 MG/2 ML VIAL IVP ONE (09:46)
[2021-02-27] MEDS: fentaNYL (PF) 50 MCG/ML 2 ML AMP IVP ONE ×3 (09:46→12:59)
[2021-02-27 10:13] VITALS: RESP 16
[2021-02-27] MEDS ORDERED: ROPIVACAINE 5 MG/ML 30 ML VIAL ONE (10:29)
[2021-02-27] MEDS ORDERED: PROPOFOL 10 MG/ML 20 ML VIAL IV ONE (10:29)
[2021-02-27] MEDS ORDERED: SODIUM CHLORIDE 0.9% (PF) 10 ML VIAL ONE (10:29)
[2021-02-27] MEDS ORDERED: TRANEXAMIC ACID 1,000 MG/10 ML VIAL ONE (10:29)
[2021-02-27] MEDS ORDERED: SODIUM CHLORIDE 0.9% 100 ML BAG ONE (10:29)
[2021-02-27] MEDS ORDERED: NEOSTIGMINE 1 MG/ML 10 ML VIAL ONE (10:29)
[2021-02-27] MEDS ORDERED: HYDROmorphone (PF) 1 MG/ML ONE (10:29)
[2021-02-27] MEDS ORDERED: ROCURONIUM 10 MG/ML (5 ML VIAL) IV ONE (10:29)
[2021-02-27] MEDS ORDERED: LIDOCAINE 1% INJ 10MG/ML (20 ML MDV) ONE (10:29)
[2021-02-27] MEDS ORDERED: GLYCOPYRROLATE 0.2 MG/ML 2 ML VIAL ONE (10:29)
[2021-02-27] MEDS ORDERED: MIDAZOLAM 2 MG/2 ML VIAL ONE (10:29)
[2021-02-27] MEDS ORDERED: SUCCINYLCHOLINE CHLORIDE 100 MG/5 ML SYR IV ONE (10:29)
[2021-02-27] MEDS ORDERED: fentaNYL (PF) 50 MCG/ML 2 ML AMP ONE (10:29)
[2021-02-27] MEDS ORDERED: ceFAZolin 1,000 MG in SODIUM CHLORIDE 0.9% 1,000 ML IRRIGATION ONE (10:56)
[2021-02-27] MEDS ORDERED: LACTATED RINGERS 1,000 ML IV ONE ×2 (10:58→12:30)
--- NOTE | 2021-02-27 11:31 | P.ANPRN ---
Procedure Note - Anesthesia - Nerve Block Performed Right Adductor Canal Infusion Time Out Performed: Yes (945) Date of Procedure: 02/27/21 Procedure Start Time: 09:46 Procedure Stop Time: 09:51 Location of Patient: PreOp Indication: Acute Post-Operative Pain, Requested by Surgeon Specifically requested for management of pain by DrJonas: Jesse Cortes Sedation Type: Sedate with meaningful contact maintained Preparation: Sterile Prep Position: Supine Catheter Depth at Skin (cm): 10 Catheter: Indwelling Needle Types: Pajunk Needle Gauge: 21 Ultrasound used to visualize needle placement: Yes Ultrasound used to observe medication spread: Yes Injectate: 0.5% Ropivacaine (see comment for volume) (20cc) Blood Aspirated: No Pain Paresthesia on Injection Noted: No Resistance on Injection: Normal Image Stored and Saved: Yes Events: Uneventful and Well Tolerated Right iPack Single Time Out Performed: Yes (945) Date of Procedure: 02/27/21 Procedure Start Time: 09:52 Procedure Stop Time: 09:56 Indication: Acute Post-Operative Pain, Requested by Surgeon Specifically requested for management of pain by DrJonas: Jesse Cortes Sedation Type: Sedate with meaningful contact maintained Preparation: Sterile Prep Position: Supine Catheter: None Needle Types: Pajunk Needle Gauge: 21 Ultrasound used to visualize needle placement: Yes Ultrasound used to observe medication spread: Yes Injectate: 0.5% Ropivacaine (see comment for volume) (10cc + 10cc NaCl) Blood Aspirated: No Pain Paresthesia on Injection Noted: No Resistance on Injection: Normal Image Stored and Saved: Yes Events: Uneventful and Well Tolerated
[2021-02-27] MEDS ORDERED: HYDROcodone/APAP 7.5-325MG 1 EACH TAB PO PRN (12:30)
[2021-02-27] MEDS ORDERED: NALOXONE 0.4 MG/ML 1 ML VIAL IV PRN (12:30)
[2021-02-27] MEDS ORDERED: HYDROmorphone 0.2 MG/1 ML SYRINGE IVP PRN (12:30)
[2021-02-27] MEDS ORDERED: HYDROmorphone 0.5 MG/0.5 ML SYRINGE IVP PRN (12:30)
[2021-02-27] MEDS ORDERED: HYDROcodone/APAP 5-325MG 1 EACH TAB PO PRN (12:30)
[2021-02-27] MEDS ORDERED: HYDROmorphone 1 MG/ML 1 ML SYRINGE IVP PRN (12:30)
[2021-02-27] MEDS ORDERED: ONDANSETRON 4 MG/2 ML VIAL IVP PRN (12:30)
--- NOTE | 2021-02-27 12:30 | P.OP ---
Date of Procedure: 02/27/21 Preoperative Diagnosis: Right knee osteoarthritis Postoperative Diagnosis: Right knee osteoarthritis Procedure(s) Performed: Right total knee arthroplasty Implants: 1. Depuy attune size 7 right cruciate retaining cemented femur 2. Depuy attune size 6 fixed bearing cemented tibial baseplate 3. Depuy attune size 7 fixed bearing cruciate retaining 5 mm polyethylene tibial insert 4. Depuy attune the 41 mm all polyethylene cemented patella Anesthesia: GETA, regional (Adductor canal catheter, I pack block) Surgeon: Jesse Cortes Needle Punch Machine Operator Helper #1: Geronimo Elizalde Estimated Blood Loss (ml): 168 Pathology: other (bone) Condition: stable Disposition: PACU Indications for Procedure: 65-year-old patient seen with symptomatic right knee osteoarthritis. After treatment options were discussed, he elected to proceed with total knee arthroplasty. Operative Findings: see description of procedure Description of Procedure: Patient was taken to the operative suite after having an adductor canal catheter placed by the department of anesthesia along with an I-pack block performed by the department of anesthesia. Patient underwent a general anesthetic by the department of anesthesia. Patient was given preoperative IV intake antibiotics and TXA. A well-padded tourniquet was placed about the right lower extremity. The lower extremity was then prepped and draped in the normal sterile orthopedic fashion. The extremity was elevated, a tourniquet was insufflated to 300. A standard anterior incision was made sharply through skin. Dissection was taken down through the subcutaneous soft tissues down to the extensor mechanism. A medial arthrotomy was performed, patella was everted and knee was flexed. There was advanced osteoarthritis noted. I introduced my distal intramedullary femoral drill. I then introduced the distal femoral cutting jig. Riccardo OG secured the cutting jig with 2 pins. I held retractors in position while Riccardo OG performed the distal femoral resection through the guide area we now removed her distal femoral cutting guide. We now placed our 4-in-1 femoral cutting block and positioned and it was secured with 2 pins by Riccardo OG while I held the block in position. The distal femoral finishing was now completed. A proximal tibial cutting guide was positioned. I held the guide in the appropriate position with both hands well Riccardo OG inserted stabilizing pins into the guide. Proximal tibial cut was made. We now placed a trial femoral component into position, along with an appropriate size tibial tray and insert. We now took the knee through range of motion and had full extension good flexion and good overall soft tissue balance noted. The patella was everted and stabilized with 2 towel clips held by Riccardo OG while I performed a flush with patellar quad tendon utilizing a fresh sawblade. We templated the patella, appropriate drill holes were made. An appropriate trial patella was positioned, knee was taken through full range of motion with the patella tracking very nicely. The trial patella was removed. Drill holes were made through the femoral component. All trial components were removed after marking off the appropriate rotation of the tibia. Retractors were now positioned along the proximal tibia. An appropriate keel punch was made with the appropriate size tibial guide by myself on Riccardo OG assisted by holding retractors. At this point appropriate size implants were chosen and opened. The joint was irrigated copiously with pulse lavage mechanical irrigation. The posterior capsule was infiltrated with local analgesic. The wound was irrigated with pulse lavage mechanical irrigation. We mixed antibiotic methylmethacrylate. We placed the knee into flexion. We placed multiple retractors assisted by Riccardo OG to expose the proximal tibia. Once the methyl methacrylate was ready, the tibial component was cemented into place removing any excess methylmethacrylate form by both myself and Riccardo OG. The femoral component was cemented into place removing the removing any excess methylmethacrylate performed by both myself and Riccardo OG. We then inserted the appropriate size polyethylene tibial insert. We made sure that it was locked into position. We took the knee into full extension, and then back in a flexion making sure we had removed any excess methylmethacrylate. The patellar component was then cemented down and secured with clamp. Excess methylmethacrylate removed. We kept the knee in full extension, patellar clamp in position until methylmethacrylate had hardened. Once it had hardened the patellar clamp was removed. The knee was taken through full range of motion. The patella tracked nicely. There was good soft tissue balancing. The tourniquet was now released. Additional hemostasis was achieved via electrocautery. A second gram of TXA was given. There was a fair amount of diffuse bleeding. I used some Surgicel powder to assist with hemostasis. The wound again was irrigated with pulse lavage mechanical irrigation. The superficial soft tissues were infiltrated local analgesic. The extensor mech anism was repaired with Vicryl. We checked the repair with range of motion and it was stable. The subcutaneous soft tissues were repaired with Vicryl in layers. The skin was approximated with pernio/Dermabond. Sterile dressings were applied followed by loose web roll and Huy bandage. The patient was transferred to a bed, and taken to recovery in stable and satisfactory condition. Riccardo OG assisted with this complex procedure.
--- NOTE | 2021-02-27 13:11 | XR ---
EXAMINATION TYPE: XR knee limited RT DATE OF EXAM: 02/27/2021 CLINICAL HISTORY: Right knee pain and arthritis status post total knee replacement. TECHNIQUE: Portable AP and crosstable lateral views of the right knee are obtained immediately posto peratively. COMPARISON: None outside right knee x-ray January 10, 2021 FINDINGS: Metallic hardware from total right knee arthroplasty is seen and appears satisfactory in a lignment and position. There is evidence of recent surgery with diffuse subcutaneous gas, vertical s kin shalonda, and diffuse soft tissue swelling noted. Old healed fracture deformity of distal femur is partially imaged. IMPRESSION: METALLIC HARDWARE FROM TOTAL RIGHT KNEE ARTHROPLASTY IS SATISFACTORY IN ALIGNMENT.
[2021-02-27] MEDS: HYDROmorphone 0.5 MG/0.5 ML SYRINGE IVP PRN ×4 (13:15→14:01)
[2021-02-27 14:05] VITALS: TEMP 96.8
[2021-02-27] MEDS ORDERED: ROPIVACAINE 0.2%-NS ON-Q PUMP 2 MG/ML EACH MISCELLANE ONE (14:07)
[2021-02-27 15:34] VITALS: BP 143/67; PULSE 52
== END 2021-02-27 17:25 | disposition home health service (06) ==
LOC: OR 08:31
PROVIDERS: ATTEND Orthopaedic Surgery
DX: M17.11 Unilateral primary osteoarthritis, right knee (principal); I25.10 Atherosclerotic heart disease of native coronary artery without angina pectoris; I10 Essential (primary) hypertension; E78.5 Hyperlipidemia, unspecified; E11.9 Type 2 diabetes mellitus without complications; K21.9 Gastro-esophageal reflux disease without esophagitis; Z95.5 Presence of coronary angioplasty implant and graft; I25.2 Old myocardial infarction; Z87.891 Personal history of nicotine dependence; Z79.82 Long term (current) use of aspirin; Z79.899 Other long term (current) drug therapy; Z91.030 Bee allergy status
CPT/HCPCS: 97110; 97161; 64999; 64448; 76942; 88300; 87635; 73560; 27447; C1776; C1713; J2250; J1100; J2710; J0690 ×2; J2405; J2001; J3010; J1170 ×2; J2795 ×2; J0330; J2704

== ENCOUNTER 2021-07-03 12:28 | Day surgery (SDC) | payer MEDICARE ==
[2021-06-26 14:36] VITALS: BMI 28.8
--- NOTE | 2021-07-02 11:53 | HP ---
HISTORY AND PHYSICAL DATE OF SURGERY: 07/03/2021 Keegan Parker is a 66-year-old gentleman seen with symptomatic left knee osteoarthritis. After treatment options were discussed with him, he elected to proceed with left total knee arthroplasty. Consent was obtained. PAST MEDICAL HISTORY: Hypertension, hyperlipidemia. PAST SURGICAL HISTORY: Right total knee arthroplasty. Cardiac catheterization with stent insertion. DAILY MEDICATIONS: Atorvastatin, losartan, Zetia, tramadol. ALLERGIES: NONE. SOCIAL HISTORY: He denies current tobacco use. PHYSICAL EVALUATION OF THE LEFT KNEE: Range of motion is negative 3 to 115. Mild effusion. Tenderness, lateral joint line. Positive lateral Adrienne's. Crepitus, lateral and patellofemoral compartments with range of motion. Pain with patellofemoral compression. Ligaments stable. Hip rotation without pain. His distal neurovascular exam is intact. RADIOGRAPHS: Radiographs of the left knee reveal severe osteoarthritic changes. IMPRESSION: 1. Left knee osteoarthritis. 2. Hypertension. 3. Hyperlipidemia. PLAN: Left total knee arthroplasty. MMODL / IJN: [id number] /
[~2021-07-03 12:28] MED LIST changes: +DEXAMETHASONE SOD PHOSPHATE 4 MG/ML 1 ML VIAL IV ONE; -LIDOCAINE 1% (10MG/ML) FOR IV START INTRADERMA PRN; +ONDANSETRON 4 MG/2 ML VIAL IVP ONE
[2021-07-03] MEDS ORDERED: MIDAZOLAM 2 MG/2 ML VIAL IVP ONE (13:09)
[2021-07-03] MEDS ORDERED: TRANEXAMIC ACID 1,000 MG/10 ML VIAL ONE (13:21)
[2021-07-03] MEDS ORDERED: DEXAMETHASONE SOD PHOSPHATE 4 MG/ML 1 ML VIAL ONE (13:21)
[2021-07-03] MEDS ORDERED: SODIUM CHLORIDE 0.9% 100 ML BAG ONE (13:21)
[2021-07-03] MEDS ORDERED: PROPOFOL 10 MG/ML 20 ML VIAL IV ONE (13:21)
[2021-07-03] MEDS ORDERED: ROPIVACAINE 5 MG/ML 30 ML VIAL ONE (13:21)
[2021-07-03] MEDS ORDERED: MIDAZOLAM 2 MG/2 ML VIAL ONE (13:21)
[2021-07-03] MEDS ORDERED: ceFAZolin 1,000 MG in SODIUM CHLORIDE 0.9% 1,000 ML IRRIGATION ONE (13:53)
--- NOTE | 2021-07-03 15:17 | P.OP ---
Date of Procedure: 07/03/21 Preoperative Diagnosis: Left knee osteoarthritis Postoperative Diagnosis: Left knee osteoarthritis Procedure(s) Performed: Left total knee arthroplasty Implants: 1. Depuy attune size 7 left cruciate retaining cemented femur 2. Depuy attune size 6 fixed bearing cemented tibial baseplate 3. Depuy attune size 7 cruciate retaining fixed bearing 12 mm polyethylene tibial insert 4. Depuy attune 41 mm all polyethylene cemented patella Anesthesia: regional (Adductor canal catheter, Ipack block), spinal Surgeon: Jesse Cortes Harness Brusher #1: Geronimo Elizalde Estimated Blood Loss (ml): 45 Pathology: other (Bone) Condition: stable Disposition: PACU Indications for Procedure: 66-year-old patient seen with symptomatic left knee osteoarthritis. After treatment options were discussed, he elected to proceed with total knee ar throplasty. Operative Findings: see description of procedure Description of Procedure: Patient was taken to the operative suite after having an adductor canal catheter placed by the department of anesthesia along with an Ipack block for postoperative pain management. Patient underwent a spinal anesthetic by the department of anesthesia. Patient was given preoperative IV intake antibiotics and TXA. A well-padded tourniquet was placed about the left lower extremity. The lower extremity was then prepped and draped in the normal sterile orthopedic fashion. The extremity was elevated, a tourniquet was insufflated to 300. A standard anterior incision was made sharply through skin. Dissection was taken down through the subcutaneous soft tissues down to the extensor mechanism. A medial arthrotomy was performed, patella was everted and knee was flexed. There was advanced osteoarthritis noted. I introduced my distal intramedullary f emoral drill. I then introduced the distal femoral cutting jig. Riccardo OG secured the cutting jig with 2 pins. I held retractors in position while Riccardo OG performed the distal femoral resection through the guide area we now removed her distal femoral cutting guide. We now placed our 4-in-1 femoral cutting block and positioned and it was secured with 2 pins by Riccardo OG while I held the block in position. The distal femoral finishing was now completed. A proximal tibial cutting guide was positioned. I held the guide in the appropriate position with both hands well Riccardo OG inserted stabilizing pins into the guide. Proximal tibial cut was made. We now placed a trial femoral component into position, along with an appropriate size tibial tray and insert. We now took the knee through range of motion and had full extension good flexion and good overall soft tissue balance noted. The patella was everted and stabilized with 2 towel clips held by Riccardo OG while I performed a flush with patellar quad tendon utilizing a fresh sawblade. We templated the patella, appropriate drill holes were made. An appropriate trial patella was positioned, knee was taken through full range of motion with the patella tracking very nicely. The trial patella was removed. Drill holes were made through the femoral component. All trial components were removed after ma rking off the appropriate rotation of the tibia. Retractors were now positioned along the proximal tibia. An appropriate keel punch was made with the appropriate size tibial guide by myself on Riccardo OG assisted by holding retractors. At this point appropriate size implants were chosen and opened. The joint was irrigated copiously with pulse lavage mechanical irrigation. The posterior capsule was infiltrated with local analgesic. The wound was irrigated with pulse lavage mechanical irrigation. We mixed antibiotic methylmethacrylate. We placed the knee into flexion. We placed multiple retractors assisted by Riccardo OG to expose the proximal tibia. Once the methyl methacrylate was ready, the tibial component was cemented into place removing any excess methylmethacrylate form by both myself and Riccardo OG. The femoral component was cemented into place removing the removing any excess methylmethacrylate performed by both myself and Riccardo OG. We then inserted the appropriate size polyethylene tibial insert. We made sure that it was locked into position. We took the knee into full extension, and then back in a flexion making sure we had removed any excess methylmethacrylate. The patellar component was then cemented down and secured with clamp. Excess methylmethacrylate removed. We kept the knee in full extension, patellar clamp in position until methylmethacrylate had hardened. Once it had hardened the patellar clamp was removed. The knee was taken through full range of motion. The patella tracked nicely. There was good soft tissue balancing. The tourniquet was now released. Additional hemostasis was achieved via electrocautery. A second gram of TXA was given. The wound again was irrigated with pulse lavage mechanical irrigation. The extensor mechanism was repaired with Ethibond. We checked the repair with range of motion and it was stable. The subcutaneous soft tissues were repaired with Vicryl in layers. The skin was approximated with pernio/Dermabond. Sterile dressings were applied followed by loose web roll and Huy bandage. The patient was transferred to a bed, and taken to recovery in stable and satisfactory condition. Riccardo OG assisted with this complex procedure.
[2021-07-03] MEDS ORDERED: traMADol 50 MG TAB PO PRN (15:18)
[2021-07-03] MEDS ORDERED: HYDROmorphone 0.5 MG/0.5 ML SYRINGE IVP PRN (15:18)
[2021-07-03] MEDS ORDERED: HYDROcodone/APAP 5-325MG 1 EACH TAB PO PRN (15:18)
[2021-07-03] MEDS ORDERED: ONDANSETRON 4 MG/2 ML VIAL IVP PRN (15:18)
[2021-07-03] MEDS ORDERED: HYDROmorphone 0.2 MG/1 ML SYRINGE IVP PRN (15:18)
[2021-07-03] MEDS ORDERED: NALOXONE 0.4 MG/ML 1 ML VIAL IV PRN (15:18)
[2021-07-03] MEDS ORDERED: hydrOXYzine pamoate 25 MG CAP PO PRN (15:18)
[2021-07-03] MEDS ORDERED: ROPIVACAINE 0.2%-NS ON-Q PUMP 1,090 MG, EMPTY PAIN BALL 1 EACH MISCELLANE PRN (15:47)
[2021-07-03] MEDS ORDERED: CALCIUM CARBONATE 500 MG CHEWABLE PO PRN (15:56)
[2021-07-03] MEDS ORDERED: NITROGLYCERIN SL TABS 0.4 MG TAB SUBLINGUAL PRN (15:56)
[2021-07-03] MEDS ORDERED: CYCLOBENZAPRINE 10 MG TAB PO PRN (15:56)
--- NOTE | 2021-07-03 16:01 | XR ---
EXAMINATION TYPE: XR knee limited LT DATE OF EXAM: 07/03/2021 CLINICAL HISTORY: Left knee pain and arthritis status post total knee replacement. TECHNIQUE: Portable AP and crosstable lateral views of the left knee are obtained immediately postop eratively. COMPARISON: Outside left knee x-ray May 30, 2021 FINDINGS: Metallic hardware from total left knee arthroplasty is seen and appears satisfactory in al ignment and position. There is evidence of recent surgery with diffuse subcutaneous gas and soft tis lore swelling noted greatest anteriorly and laterally. IMPRESSION: METALLIC HARDWARE FROM TOTAL LEFT KNEE ARTHROPLASTY IS SATISFACTORY IN ALIGNMENT.
[2021-07-03] MEDS ORDERED: LACTATED RINGERS 1,000 ML IV ONE (16:05)
[2021-07-03] MEDS: LACTATED RINGERS 1,000 ML IV SCH (17:47)
--- NOTE | 2021-07-03 18:47 | P.ANPRN ---
Procedure Note - Anesthesia - Nerve Block Performed Left Adductor Canal Infusion Time Out Performed: Yes Date of Procedure: 07/03/21 Procedure Start Time: 13:08 Procedure Stop Time: 13:16 Location of Patient: PreOp Indication: Acute Post-Operative Pain, Requested by Surgeon Sedation Type: Sedate with meaningful contact maintained Preparation: Sterile Prep, Sterile Dressing Position: Supine Catheter: Indwelling Needle Types: Pajunk Needle Gauge: 21 Ultrasound used to visualize needle placement: Yes Ultrasound used to observe medication spread: Yes Blood Aspirated: No Pain Paresthesia on Injection Noted: No Resistance on Injection: Normal Image Stored and Saved: Yes Events: Uneventful and Well Tolerated (Ropivacaine 0.5% 20 mL was given)
--- NOTE | 2021-07-03 18:48 | P.ANPRN ---
Procedure Note - Anesthesia - Nerve Block Performed Left iPack Single Time Out Performed: Yes Date of Procedure: 07/03/21 Procedure Start Time: : Procedure Stop Time: Location of Patient: PreOp Indication: Acute Post-Operative Pain, Requested by Surgeon Sedation Type: Sedate with meaningful contact maintained Preparation: Sterile Prep Position: Supine Needle Types: Pajunk Needle Gauge: 21 Ultrasound used to visualize needle placement: Yes Ultrasound used to observe medication spread: Yes Blood Aspirated: No Pain Paresthesia on Injection Noted: No Resistance on Injection: Normal Image Stored and Saved: Yes Events: Uneventful and Well Tolerated (Ropivacaine 0.4% 20 mL plus dexamethasone 4 mg given)
[2021-07-03] MEDS: ENOXAPARIN 30 MG/0.3 ML SYRINGE SQ SCH (20:23)
[2021-07-03] MEDS: HYDROcodone/APAP 7.5-325MG 1 EACH TAB PO PRN (20:30)
[2021-07-03] MEDS ORDERED: SENNOSIDES-DOCUSATE SODIUM 1 EACH TAB PO SCH (21:00)
[2021-07-03] MEDS ORDERED: EZETIMIBE 10 MG TAB PO SCH (21:00)
[2021-07-03] MEDS ORDERED: ATORVASTATIN 40 MG TAB PO SCH (21:00)
[2021-07-03] MEDS ORDERED: ERYTHROMYCIN 5 MG/GM OPHTH OINT 3.5 GM TUBE LEFT EYE SCH (21:00)
[2021-07-03] MEDS ORDERED: FENOFIBRATE 160 MG TAB PO SCH (21:00)
[2021-07-03] MEDS: HYDROmorphone 1 MG/ML 1 ML SYRINGE IVP PRN (22:31)
--- NOTE | 2021-07-03 22:36 | CONS ---
CONSULTATION REASON FOR CONSULTATION: Advice regarding hypertension, hyperlipidemia, requested by Dr. Cortes. HISTORY OF PRESENT ILLNESS: This 66-year-old gentleman with a past medical history of CAD, history of hyperlipidemia, hypertension, DJD, being followed by Dr. Ryder in the outpatient setting, underwent left total knee joint arthroplasty by Dr. Cortes. The patient had apparently left eye blepharitis. Patient is receiving one week of antibiotics and erythromycin ointment at bedtime. Otherwise, there is no history of any fever, rigors or chills. No history of headache, loss of consciousness, seizures at this time. PAST MEDICAL HISTORY: History of CAD, hypertension, hyperlipidemia, history of DJD, eczema, CAD, stent. MEDICATIONS: Home medications are Ultram, erythromycin ointment as mentioned earlier, calcium, Nitrostat, multivitamins, Cozaar, fenofibrate, Zetia, Flexeril, Lipitor, aspirin. ALLERGIES: BEE VENOM. FAMILY HISTORY: History of myocardial infarction in the family. SOCIAL HISTORY: Previous history of smoking. No current smoking or alcohol intake. REVIEW OF SYSTEMS: ENT: As mentioned earlier. CARDIOVASCULAR SYSTEM: No angina, palpitations. RESPIRATORY SYSTEM: No cough, hemoptysis. GI: No nausea, vomiting, diarrhea. : No dysuria. NERVOUS SYSTEM: No numbness, weakness. ALLERGY/IMMUNOLOGY: No asthma or hay fever. MUSCULOSKELETAL: As mentioned earlier. HEMATOLOGY/ONCOLOGY: No history of anemia. ENDOCRINE: No history of diabetes, hypothyroidism. CONSTITUTIONAL: As mentioned earlier. DERMATOLOGY: Negative. RHEUMATOLOGY: Negative. PSYCHIATRY: As mentioned earlier. PHYSICAL EXAMINATION: Patient alert and oriented x3. Pulse 80, blood pressure 138/80, respiration 18, temperature 98.6, pulse ox 94% on room air. HEENT: Conjunctivae normal. Oral mucosa moist. Minimal swelling of the left eyelid present with mild blepharitis which is probably healing slowly. NECK: No jugular venous distention. CARDIOVASCULAR: S1, S2 muffled. No S3. No S4. RESPIRATION: Breath sounds diminished at the bases. No rhonchi. No crackles. ABDOMEN: Soft. No tenderness. No mass palpable. LEGS: Status post left total knee arthroplasty. NERVOUS SYSTEM: Higher functions as mentioned earlier. Moves all 4 limbs. No focal motor or sensory deficit. LYMPHATICS: No lymph node palpable in neck, axillae or groin. SKIN: No ulcer, rash, bleeding. JOINTS: As mentioned earlier. LABS: Noted. ASSESSMENT: 1. Status post left total knee joint arthroplasty. 2. Left eye blepharitis, improving. 3. History of coronary artery disease, stent. 4. History of chest pain. 5. Hypertension. 6. Hyperlipidemia. 7. History of degenerative joint disease. 8. History of eczema. 9. History of constipation. 10.History of rosacea. 11.Hard of hearing. 12.FULL CODE. RECOMMENDATIONS AND DISCUSSION: In this 66-year-old gentleman with multiple complex medical issues, I would recommend to continue the current medications, continue symptomatic treatment. Otherwise, resume the home medications. Incentive spirometry. DVT prophylaxis. Continue with erythromycin ointment. Otherwise, the patient may be asked to follow with Dr. Ryder closely after discharge. Thank you, Dr. Cortes, for letting us participate in the care of this patient. MMODL / PAVANN: [id number] /
[2021-07-04] MEDS ORDERED: MELATONIN 3 MG TABLET PO PRN (00:25)
[2021-07-04] MEDS: HYDROmorphone 1 MG/ML 1 ML SYRINGE IVP PRN ×3 (00:34→09:14)
[2021-07-04] MEDS: LACTATED RINGERS 1,000 ML IV SCH (04:53)
--- NOTE | 2021-07-04 07:28 | P.PN ---
Progress Note - Text 07/04/21 718am 66-year-old male status post total knee replacement by Dr. Cortes. Patient seen and evaluated this morning and is an On-Q pump for postop pain control with the solution running at 9 mL an hour with a VAS of 6-7 patient's pain is predominantly located in the posterior aspect of the. Dressing clean dry and intact. Plan continue On-Q pump infusion
[2021-07-04] MEDS: HYDROcodone/APAP 7.5-325MG 1 EACH TAB PO PRN (07:47)
[2021-07-04] MEDS: ENOXAPARIN 30 MG/0.3 ML SYRINGE SQ SCH (07:48)
[2021-07-04 08:21] VITALS: BP 176/91; PULSE 71; RESP 18; TEMP 98.2
[2021-07-04] MEDS ORDERED: LOSARTAN 50 MG TAB PO SCH (09:00)
[2021-07-04] MEDS ORDERED: MULTIVITAMINS, THERA 1 EACH TAB PO SCH (09:00)
[2021-07-04] MEDS ORDERED: ASPIRIN 81 MG PO SCH (09:00)
--- NOTE | 2021-07-04 10:22 | P.DS ---
Providers Date of admission: 07/03/2021 Expected date of discharge: 07/04/21 Attending physician: Jesse Cortes Consults: 07/03/21 15:18 Consult Physician Routine Consulting Provider: Archie Quevedo Consult Reason/Comments: Medical management Do you want consulting provider notified?: Yes Primary care physician: EARLE Gonzalez Hospital Course: Date of admission: 07/03/2021 Date of discharge: 07/04/2021 Admission diagnosis: Left knee osteoarthritis Discharge diagnosis: Same Attending physician: Dr. Cortes Surgical procedures: Left total knee arthroplasty Brief history: Patient is a 66-year-old male with a history of progressive primary left knee osteoarthritis. At this point patient has failed conservative treatment measures and has opted to proceed with a elective left total knee arthroplasty. Hospital course: Details of patient's surgery can be found in operative report. Patient tolerated the procedure well and was subsequently transported to orthopedic floor. Patient's orthopeidc and medical care was provided daily. Patient had daily laboratory tests performed for evaluation of overall blood counts. Patient had daily physical therapy to include strengthening range of motion as well as education with walker ambulation. Patient was treated with Lovenox for their postoperative DVT prophylaxis during their inpatient stay. Patient was noted to have a relatively uneventful postoperative course. Patient reported satisfactory pain control with oral pain medications by postoperative day 1. Patient showed satisfactory progress with physical therapy. Patient moved steadily through the program and had no difficulty meeting the goals by postoperative day 1. Given patient's otherwise satisfactory course and having met physical therapy goals, plan is to discharge patient home on postoperative day 1. Discharge condition/disposition: Patient will be discharged home in stable condition. Discharge medications: Instructions are given on resumption of patient's normal daily medications per primary care recommendation, in addition patient will be prescribed Donie 7.5 mg/325 mg; aspirin 81 mg twice a day 30 days; Colace. Discharge instructions: 1. Wound care and infection precautions, keep incision dry and covered while showering, no lotions, creams, moisturizers. No soaking, tubs, pools, hottubs. Do not scrub over the incision. 2. Weight-bear as tolerated with walker / cane until follow-up. 3. Ice and elevate when necessary. Do not exceed 20 minutes per hour with ice pack. 4. Utilize compression sleeve until seen at first follow up appointment. 5. Visiting nursing care. 6. Home physical therapy. 7. Pain meds and anticoagulants per prescription. 8. Pain medication has potential to cause constipation. Increase oral fluid and fiber intake. Contact primary care provider if you have not had a bowel movement within 48 hours after discharge 9. No anti-inflammatory medication until discussed at first post operative visit, this including Motrin, Aleve, Mobic, Diclofenac. 10. Follow up in office at 2 weeks postop with Riccardo Elizalde PA-C / Milind Walden PA-C 11. Follow up with your primary care doctor 7-10 days after discharge. 12. Contact [facility] with any questions, . Assessment: Left knee osteoarthritis Procedures: Left total knee arthroplasty Patient Condition at Discharge: Good Plan - Discharge Summary Discharge Rx Participant: No New Discharge Prescriptions: New Docusate [Colace] 100 mg PO DAILY #30 cap Aspirin [Adult Low Dose Aspirin EC] 81 mg PO BID #60 tab HYDROcodone/APAP 7.5-325MG [Donie 7.5] 1 each PO Q6HR PRN #42 tab PRN Reason: Pain No Action traMADol HCL [Ultram] 50 mg PO QID Cyclobenzaprine [Flexeril] 10 mg PO DAILY PRN PRN Reason: Muscle Spasm Losartan Potassium [Cozaar] 100 mg PO DAILY Fenofibrate 160 mg PO HS Atorvastatin [Lipitor] 40 mg PO HS tab Nitroglycerin Sl Tabs [Nitrostat] 0.4 mg SUBLINGUAL Q5M PRN tab PRN Reason: Chest Pain Multivitamins, Thera [Multivitamin (formulary)] 1 tab PO DAILY Ezetimibe [Zetia] 10 mg PO HS Aspirin [Adult Low Dose Aspirin EC] 81 mg PO QAM Erythromycin Ophth Oint [Romycin Ophth Oint] 1 applic LEFT EYE HS Calcium Carbonate Tab 1 tab PO DAILY PRN PRN Reason: Heartburn Discharge Medication List Cyclobenzaprine [Flexeril] 10 mg PO DAILY PRN 06/29/19 [History] Fenofibrate 160 mg PO HS 06/29/19 [History] Losartan Potassium [Cozaar] 100 mg PO DAILY 06/29/19 [History] traMADol HCL [Ultram] 50 mg PO QID 06/29/19 [History] Atorvastatin [Lipitor] 40 mg PO HS tab 07/01/19 [Rx] Nitroglycerin Sl Tabs [Nitrostat] 0.4 mg SUBLINGUAL Q5M PRN tab 07/01/19 [Rx] Ezetimibe [Zetia] 10 mg PO HS 02/13/21 [History] Multivitamins, Thera [Multivitamin (formulary)] 1 tab PO DAILY 02/13/21 [History] Aspirin [Adult Low Dose Aspirin EC] 81 mg PO QAM 06/26/21 [History] Calcium Carbonate Tab 1 tab PO DAILY PRN 06/26/21 [History] Erythromycin Ophth Oint [Romycin Ophth Oint] 1 applic LEFT EYE HS 06/26/21 [History] Aspirin [Adult Low Dose Aspirin EC] 81 mg PO BID #60 tab 07/04/21 [Rx] Docusate [Colace] 100 mg PO DAILY #30 cap 07/04/21 [Rx] HYDROcodone/APAP 7.5-325MG [Donie 7.5] 1 each PO Q6HR PRN #42 tab 07/04/21 [Rx] Follow up Appointment(s)/Referral(s): [facility],Equipment [NON-STAFF] - (Please call [facility] once home to arrange delivery of the Continuous Passive Motion (CPM) machine. ) [facility], [NON-STAFF] - ([facility] will call you to arrange the time for your first visit on 07/05/21.) Geronimo Elizalde PAC [PHYSICIAN DEPOSITION OPERATOR] - 2 Weeks Activity/Diet/Wound Care/Special Instructions: Orthopedic Discharge Instructions: 1. Wound care and infection precautions, keep incision dry and covered while showering, no lotions, creams, moisturizers. No soaking, pools, hot tubs. Do not scrub over incision. 2. Weight-bear as tolerated with walker / cane until follow-up. 3. Ice and elevate when necessary. Do not exceed 20 minutes per hour with ice pack. 4. Utilize compression sleeve until seen at first follow up appointment. 5. Pain meds and anticoagulants per prescription. 6. Pain medication has potential to cause constipation. Increase oral fluid and fiber intake. Contact primary care provider if you have not had a bowel movement within 48 hours after discharge. 7. No anti-inflammatory medication until discussed at first post operative visit, this including Motrin, Aleve, Mobic, Diclofenac. 8. Follow up in office at 2 weeks postop with Riccardo Elizalde PA-C / Milind Walden PA-C 9. Follow up with your primary care doctor 7-10 days after discharge. 10. Contact [facility] with any questions, . Keep silver foam dressing on until Saturday. While showering with silver foam dressing, cover dressing and Saran wrap. Discharge Disposition: HOME WITH HOME HEALTH SERVICES
[2021-07-04 11:23] LABS: Basophils # (A) 0.01 X 10*3/uL (0.00-0.10); Basophils % (A) 0.1 %; Eosinophils # (A) 0 X 10*3/uL (0.04-0.35); Eosinophils % (A) 0 %; HGB 12.2 g/dL (13.0-17.0); Lymphocytes # (A) 0.86 X 10*3/uL (0.90-5.00); Lymphocytes % (A) 6.5 %; MCH 29.8 pg (27.0-32.0); MCHC 33.9 g/dL (32.0-37.0); MCV 87.8 fL (80.0-97.0); Monocytes % (A) 4.5 %; Neutrophils # (A) 11.64 X 10*3/uL (1.80-7.70); Neutrophils % (A) 88.1 %; Platelet Count 167 X 10*3/uL (140-440); RDW 13.4 % (11.5-14.5); WBC 13.21 X 10*3/uL (4.50-10.00)
--- NOTE | 2021-07-04 12:12 | P.PN ---
Subjective Progress Note Date: 07/04/21 Principal diagnosis: Left knee osteoarthritis Patient was seen at bedside this morning. Patient was resting in chair icing knee. Patient says physical therapy went well this morning. He walked in the hallway and up and down some steps. Patient says he like to go home today. Patient says he has not had bowel movement yet, however, patient says he has been passing gas. Patient denies chest pain, fever, chest breath, nausea, vomiting, change in vision, loss of bowel/bladder control. Objective - Vital Signs Vital signs: Vital Signs Temp 98.2 F 07/04/21 08:00 Pulse 71 07/04/21 08:00 Resp 18 07/04/21 08:00 BP 176/91 07/04/21 08:00 Pulse Ox 97 07/04/21 08:00 Intake & Output 07/03/21 07/04/21 07/04/21 18:59 06:59 18:59 Intake Total 33605 1600 Output Total 45 1200 Balance 12156 400 Weight 93.1 [place] [address] Lactated Ringers 1,000 ml 62103 @ 100 mls/hr IV .Q10H TUTU Rx#:[id number] Intake, IV Titration 1000 Amount Lactated Ringers 1,000 ml 900 @ 100 mls/hr IV .Q10H TUTU Rx#:[id number] ceFAZolin 2 gm In Sodium 100 Chloride 0.9% 50 ml @ 100 mls/hr IVPB Q8H TUTU Rx#: [id number] Oral 600 Output: Urine 1200 Estimated Blood Loss 45 Other: Voiding Method Urinal Urinal - Exam Left knee: Incision is clean, dry, and intact. The silver foam tape is in good condition. There is minimal soft tissue swelling and ecchymosis surrounding the medial and lateral aspects of the incision. Calf is soft, no tenderness with palpation. Plantar flexion, dorsiflexion, EHL, FHL are intact. Sensory exam to light touch throughout the extremity is intact, dorsal pedis pulses 2+. - Labs CBC & Chem 7: 07/04/21 06:51 Assessment and Plan Assessment: Left knee osteoarthritis Plan: 1. Left knee osteoarthritis - left total knee arthroplasty performed yesterday, 07/03/2021. Patient stable this morning. Plan discharge home today 2. Appreciate medical management 3. Pain management - stable at this time. Patient going home with Holmen 7.5 mg/325 mg 4. GI prophylaxis- senna. Patient going home with Colace 5. DVT prophylaxis - Lovenox in hospital. Going home with aspirin 81 mg twice a day 30 days 6. PT/OT - weightbearing as tolerated walker for assistance 7. Encourage incentive spirometer use 8. Discharge planning - plan for discharge home today. Time with Patient: Less than 30
--- NOTE | 2021-07-04 14:46 | PN ---
PROGRESS NOTE DATE OF SERVICE: 07/04/2021 This 66-year-old gentleman who was admitted after left total knee arthroplasty improving significantly. No chest pain. No palpitations. No fever. PHYSICAL EXAMINATION: Alert and oriented x3. Pulse 71, blood pressure 176/90, respiration 18, temperature 98.2, pulse ox 97% on room air. HEENT: Conjunctivae normal. Oral mucosa moist. NECK: No jugular venous distention. No lymph node enlargement. CARDIOVASCULAR: S1, S2, muffled. No S3, no S4, RESPIRATORY: Diminished breath sounds at the bases. No rhonchi and no crackles. ABDOMEN: Soft, nontender. LEGS: Status post surgery. NERVOUS SYSTEM: No focal deficits. LAB STUDIES: WBC 13.2, hemoglobin 12.2. ASSESSMENT: 1. Status post left total knee joint arthroplasty. 2. Left eye blepharitis, improving. 3. History of CAD, stent. 4. History of chest pain. 5. Hypertension. 6. Hyperlipidemia. 7. History of DJD. 8. History of eczema. 9. History of constipation. 10.History of rosacea. 11.Hard of hearing. 12.FULL CODE. 13.Increased WBC, possibly reactive. RECOMMENDATIONS: Recommend to continue current treatment. Resume the home medications. Follow up with primary physician as needed basis or in 2 weeks. The rest of the recommendations per Orthopedic surgery. Further recommendations to follow. MMODL / IJN: [id number] /
== END 2021-07-04 12:53 | disposition home health service (06) ==
LOC: OR 12:28 → 4SSUR 15:12 → OR 07-04 12:53
PROVIDERS: ATTEND Orthopaedic Surgery
DX: M17.12 Unilateral primary osteoarthritis, left knee (principal); E78.5 Hyperlipidemia, unspecified; H01.006 Unspecified blepharitis left eye, unspecified eyelid; I10 Essential (primary) hypertension; I25.10 Atherosclerotic heart disease of native coronary artery without angina pectoris; Z79.82 Long term (current) use of aspirin; Z79.899 Other long term (current) drug therapy; Z87.891 Personal history of nicotine dependence; Z95.5 Presence of coronary angioplasty implant and graft; I25.2 Old myocardial infarction; Z96.641 Presence of right artificial hip joint
CPT/HCPCS: 27447; 97161; 85025; 73560; C1776; C1713 ×2; J2250; J1100; J0690 ×3; J2405; J1650 ×2; J1170 ×2; J2795; 88300

== ENCOUNTER → 2021-10-24 | Outpatient (CLI) | payer MEDICARE ==
--- NOTE | 2021-10-24 15:50 | US ---
EXAMINATION TYPE: US venous doppler duplex LE LT DATE OF EXAM: 10/24/2021 2:58 PM COMPARISON: NONE CLINICAL HISTORY: LLE; M79.662. LLE tightening/cramping x 4 days SIDE PERFORMED: Left TECHNIQUE: The lower extremity deep venous system is examined utilizing real time linear array sonog kip with graded compression, doppler sonography and color-flow sonography. VESSELS IMAGED: Common Femoral Vein Deep Femoral Vein Greater Saphenous Vein * Femoral Vein Popliteal Vein Small Saphenous Vein * Proximal Calf Veins (* superficial vessels) There is normal flow, compressibility, vascular waveforms. Left Leg: Negative for DVT IMPRESSION: No evident deep venous thrombosis within the left lower extremity from the level of the k nee centrally
== END | disposition home or self-care (01) ==
LOC: RADUSWWP 14:37
PROVIDERS: ATTEND Internal Medicine
DX: M79.662 Pain in left lower leg (principal)

== ENCOUNTER → 2025-03-01 | Outpatient (CLI) | payer MEDICARE ==
[2025-03-01 14:21] LABS: African American GFR (CKD) >90 (>60 ml/min/1.73 sqM); Blood Urea Nitrogen 21 mg/dL (9-20); Non-African American GFR(CKD) >90 (>60 ml/min/1.73 sqM)
--- NOTE | 2025-03-01 15:22 | CT ---
EXAMINATION TYPE: CT angio chest CT DLP: 718.30 mGycm, Automated exposure control for dose reduction was used. DATE OF EXAM: 03/01/2025 3:00 PM COMPARISON: Chest radiograph 06/29/2019 CLINICAL INDICATION:Male, 69 years old with history of I71.20 THORACIC AORTIC ANEURYSM WITHOUT; THORA CIC AORTIC ANEURYSM WITHOUT RUPTURE TECHNIQUE/CONTRAST: CTA scan of the thorax is performed without and with IV Contrast, patient injected with 100ML mL of I sovue 370. 3D reconstructed images are created on an independent workstation and reviewed.. FINDINGS: Lungs/Pleura: Minimal biapical pleural-parenchymal scarring. Left upper lobe 3 mm callus or granuloma . Peripheral right upper lobe 3.3 mm pulmonary nodule (series 4, image 14). Right midlung 4.4 mm nodu le along the minor fissure (series 4, image 35). Right middle lobe 3.5 mm pulmonary nodule (series 4, image 37). Right middle lobe 4.4 mm pulmonary nodule (series 4, image 44). Right lower lobe 6.1 mm p ulmonary nodule (series 4, image 48). Additional smaller few scattered pulmonary nodules including a left lower lobe 4.3 mm pulmonary nodule (series 4, image 34). Airway: Large airways are patent. Heart: Size within normal limits. Moderate to severe coronary artery calcifications present. Vasculature: Mild atherosclerotic calcification of the aorta and its branches. No evidence for intram ural hematoma or dissection. Conventional three-vessel aortic arch. The descending thoracic aorta mary sures up to 3.0 cm. Aneurysmal dilatation of the aortic root measures up to 4.5 cm. Aneurysmal dilata tion of the ascending thoracic aorta measures up to 4.2 cm. No extension into the aortic arch. Mediastinum: No evidence of adenopathy. Left hilar calcific granulomas. Musculoskeletal: No acute osseous abnormalities. DISH of the thoracic spine. Soft Tissues: Unremarkable. Lower neck: No significant findings. Upper Abdomen: Left hepatic lobe 1.5 cm cyst. Calcified granulomas within the spleen.. IMPRESSION: 1. Aneurysmal dilatation of the aortic root measuring up to 4.5 cm and of the ascending thoracic aort a measuring up to 4.2 cm. No evidence for intramural hematoma or dissection. 2. Several scattered pulmonary nodules with largest measuring up to 6.1 mm. According to Sanjuana martinez, recommend follow-up CT chest in 3-6 months. 3. Sequelae of prior granulomatous disease. 4. Moderate to severe coronary arterial calcifications which can be seen as an indicator of coronary artery disease. [facility], , 03/01/2025 3:20 PM
== END | disposition home or self-care (01) ==
LOC: RADCTMAIN 13:13
PROVIDERS: ATTEND Internal Medicine Interventional Cardiology
DX: I77.810 Thoracic aortic ectasia (principal); R91.8 Other nonspecific abnormal finding of lung field; I25.10 Atherosclerotic heart disease of native coronary artery without angina pectoris
CPT/HCPCS: 82565; 84520; 71275; 36415; Q9967